=== PATIENT | male | born 1965 | race African-American/Black ===

== ENCOUNTER 2016-12-22 13:34 | Inpatient (IN) | payer OTHER ==
[2016-12-22 14:46] VITALS: BMI 25.8
--- NOTE | 2016-12-22 17:18 | HP ---
CIWA Score - CIWA Score Nausea/Vomitin-Mild Nausea/No Vomiting Muscle Tremors: 4-Moderate,w/Arms Extend Anxiety: 4-Mod. Anxious/Guarded Agitation: 4-Moderately Restless Paroxysmal Sweats: 1-Minimal Palms Moist Orientation: 0-Oriented Tacttile Disturbances: 0-None Auditory Disturbances: 0-None Visual Disturbances: 0-None Headache: 1-Very Mild CIWA-Ar Total Score: 15 Admission ROS [facility] - HPI Chief Complaint: withdrawal sx Allergies/Adverse Reactions: Allergies Allergy/AdvReac Type Severity Reaction Status Date / Time coffee (Coffea arabica) Allergy Severe Rash Verified 12/22/16 15:59 NKDA Allergy Uncoded 12/22/16 15:59 History of Present Illness: 51 years old males with long history of alcohol nicotine cocaine dependence, denies medical issue denies mental illness is admitted to detox Exam Limitations: No Limitations - Ebola screening Have you traveled outside of the country in the last 21 days: No Have you had contact with anyone from an Ebola affected area: No Have you been sick,other than usual withdrawal symptoms: No Do you have a fever: No - Review of Systems Constitutional: Changes in sleep, Weight Stable EENT: reports: No Symptoms Reported Respiratory: reports: No Symptoms reported Cardiac: reports: No Symptoms Reported GI: reports: Nausea, Poor Fluid Intake, Abdominal cramping : reports: No Symptoms Reported Musculoskeletal: reports: No Symptoms Reported Integumentary: reports: No Symptoms Reported Neuro: reports: Tremors Endocrine: reports: No Symptoms Reported Hematology: reports: No Symptoms Reported Psychiatric: reports: Judgement Intact, Mood/Affect Appropiate, Orientated x3 Other Systems: Reviewed and Negative Patient History - Patient Medical History Hx Anemia: No Hx Asthma: No Hx Chronic Obstructive Pulmonary Disease (COPD): No Hx Cancer: No Hx Cardiac Disorders: No Hx Congestive Heart Failure: No Hx Hypertension: No Hx Hypercholesterolemia: No Hx Pacemaker: No HX Cerebrovascular Accident: No Hx Seizures: No Hx Dementia: No Hx Diabetes: No Hx Gastrointestinal Disorders: No Hx Liver Disease: No Hx Genitourinary Disorders: No Hx Sexually Transmitted Disorders: No Hx Renal Disease (ESRD): No Hx Thyroid Disease: No Hx Human Immunodeficiency Virus (HIV): No Hx Hepatitis C: No Hx Depression: No Hx Suicide Attempt: No Hx Bipolar Disorder: No Hx Schizophrenia: No - Patient Surgical History Past Surgical History: No Hx Neurologic Surgery: No Hx Cataract Extraction: No Hx Cardiac Surgery: No Hx Lung Surgery: No Hx Breast Surgery: No Hx Breast Biopsy: No Hx Abdominal Surgery: No Hx Appendectomy: No Hx Cholecystectomy: No Hx Genitourinary Surgery: No Hx Orthopedic Surgery: No - PPD History Previous Implant?: Yes Documented Results: Negative w/o proof Implanted On Prior [facility] Admission?: No PPD to be Administered?: Yes - Smoking Cessation Smoking history: Current every day smoker Have you smoked in the past 12 months: Yes Aproximately how many cigarettes per day: 20 Cigars Per Day: 0 Hx Chewing Tobacco Use: No Initiated information on smoking cessation: Yes 'Breaking Loose' booklet given: 12/22/16 - Substance & Tx. History Hx Alcohol Use: Yes Hx Substance Use: Yes Substance Use Type: Alcohol, Cocaine Hx Substance Use Treatment: No ("do not know") - Substances Abused Crack Route: Smoking Frequency: 1-2 times per week Amount used: $100 Age of first use: 18 Date of Last Use: 12/21/16 Alcohol-beer Route: Oral Frequency: Daily Amount used: 3-6 pks. Age of first use: 15 Date of Last Use: 12/22/16 Family Disease History - Family Disease History Family Disease History: Other: Father (), Mother (), Brother ( no contace) Admission Physical Exam [facility] - Vital Signs Vital Signs: Vital Signs - 24 hr 12/22/16 14:43 Temperature 96.5 F L Pulse Rate 79 Respiratory 20 Rate Blood Pressure 127/78 - Physical General Appearance: Yes: Nourished, Appropriately Dressed, Mild Distress, Tremorous, Irritable, Sweating, Anxious HEENTM: Yes: Hearing grossly Normal, Normal ENT Inspection, Normocephalic, Normal Voice Respiratory: Yes: Chest Non-Tender, Lungs Clear, Normal Breath Sounds, No Respiratory Distress, No Accessory Muscle Use Neck: Yes: Supple, Trachea in good position Breast: Yes: Breasts Symetrical Cardiology: Yes: Regular Rhythm, Regular Rate, S1, S2 Abdominal: Yes: Non Tender, Soft Genitourinary: Yes: Within Normal Limits Back: Yes: Normal Inspection Musculoskeletal: Yes: full range of Motion, Gait Steady Extremities: Yes: Normal Inspection, Normal Range of Motion, Non-Tender, Tremors Neurological: Yes: Fully Oriented, Alert, Motor Strength 5/5, Normal Mood/Affect , Normal Response Integumentary: Yes: Warm Lymphatic: Yes: Within Normal Limits - Diagnostic (1) Alcohol dependence with uncomplicated withdrawal Current Visit: Yes Status: Acute (2) Cocaine dependence, uncomplicated Current Visit: Yes Status: Chronic (3) Nicotine dependence Current Visit: Yes Status: Acute Qualifiers: Nicotine product type: cigarettes Substance use status: in withdrawal Qualified Code(s): F17.213 - Nicotine dependence, cigarettes, with withdrawal Cleared for Admission [facility] - Detox or Rehab [facility] Level of Care: Medically Managed Detox Regimen/Protocol: Librium [facility] Breath Alcohol Content Breath Alcohol Content: 0 Urine Drug Screen - Results Drug Screen Negative: No Urine Drug Screen Results: YARELIS-Cocaine
[2016-12-22] MEDS ORDERED: MAGNESIUM HYDROX 2400MG/30ML ORAL SUSPENSION 30 ML CUP PO PRN (17:29)
[2016-12-22] MEDS ORDERED: MAG HYDROX/AL HYDROX/SIMETH 30 ML UNIT-DOSE CUP PO PRN (17:29)
[2016-12-22] MEDS ORDERED: IBUPROFEN 400 MG TABLET (FP) PO PRN (17:29)
[2016-12-22] MEDS ORDERED: MAGNESIUM CITRATE 300 ML BOTTLE PO PRN (17:29)
[2016-12-22] MEDS ORDERED: MENTHOL/PHENOL 1 EACH UD MM PRN (17:29)
[2016-12-22] MEDS ORDERED: guaiFENesin/D-METHORPHAN HB 10 ML UNIT-DOSE CUPS PO PRN (17:29)
[2016-12-22] MEDS ORDERED: LOPERAMIDE HCL 2 MG CAPSULE PO PRN (17:29)
[2016-12-22] MEDS ORDERED: ACETAMINOPHEN 325 MG TABLET (FP) PO PRN (17:29)
[2016-12-22] MEDS ORDERED: P-EPHED 60MG/TRIPROLIDI 2.5MG TABLET PO PRN (17:29)
[2016-12-22] MEDS ORDERED: hydrOXYzine PAMOATE 50 MG CAPSULE (FP) PO PRN (17:29)
[2016-12-22] MEDS ORDERED: diphenhydrAMINE HCL 50 MG CAPSULE PO PRN (17:29)
[2016-12-22] MEDS ORDERED: chlordiazePOXIDE HCL 25 MG CAPSULE PO PRN (17:29)
[2016-12-22] MEDS ORDERED: NICOTINE POLACRILEX 4 MG GUM BUC PRN (17:29)
[2016-12-22] MEDS: THIAMINE HCL 100 MG TABLET (FP) PO SCH (22:25)
[2016-12-22] MEDS: chlordiazePOXIDE HCL 25 MG CAPSULE PO SCH (22:25)
[2016-12-22 23:18] LABS: URINE APPEARANCE CLEAR; URINE BILIRUBIN NEGATIVE (NEGATIVE); URINE BLOOD NEGATIVE (NEGATIVE); URINE COLOR YELLOW; URINE GLUCOSE (UA) NEGATIVE (NEGATIVE); URINE KETONE 1+ (NEGATIVE); URINE LEUK ESTERASE NEGATIVE (NEGATIVE); URINE NITRITE NEGATIVE (NEGATIVE); URINE UROBILINOGEN NEGATIVE mg/dL (0.2-1.0)
[2016-12-22 23:19] LABS: URINE PROTEIN 1+ (NEGATIVE)
[2016-12-22 23:21] LABS: URINE MUCUS RARE; URINE WBC 1 /hpf (3-5)
[2016-12-23] MEDS: chlordiazePOXIDE HCL 25 MG CAPSULE PO SCH ×4 (06:24→22:30)
[2016-12-23 09:43] LABS: MCH 32.3 pg (25.7-33.7); MCHC 32.9 g/dl (32.0-35.9); MEAN CELL VOLUME 98.1 fl (80-96); MEAN PLT VOLUME 9.1 fl (7.5-11.1); PLATELET COUNT 194 K/MM3 (134-434); RDW 13.6 % (11.9-15.9); WHITE BLOOD COUNT 5.2 K/mm3 (4.0-10.0)
[2016-12-23] MEDS ORDERED: NICOTINE 21 MG/24 HOURS TOPICAL PATCH TD SCH (10:00)
[2016-12-23] MEDS ORDERED: PRENATAL VITAMINS W/ FOLIC ACID TABLET (FP) PO SCH (10:00)
[2016-12-23 10:15] LABS: ALK PHOS 64 U/L (45-117); ANION GAP 9 (8-16); BILIRUBIN,TOTAL 1.9 mg/dL (0.2-1.0); CALCIUM 9.1 mg/dL (8.5-10.1); CO2 26 mmol/L (21-32); CREATININE 1.2 mg/dL (0.7-1.3); GLUCOSE,RANDOM 103 mg/dL (74-106); SGOT/AST 35 U/L (15-37); SGPT/ALT 29 U/L (12-78); TOT PROT 7.2 g/dl (6.4-8.2)
--- NOTE | 2016-12-23 11:20 | PN ---
S CIWA - CIWA Score Nausea/Vomitin-No Nausea/No Vomiting Muscle Tremors: 4-Moderate,w/Arms Extend Anxiety: 3 Agitation: 3 Paroxysmal Sweats: 3 Orientation: 0-Oriented Tacttile Disturbances: 0-None Auditory Disturbances: 0-None Visual Disturbances: 0-None Headache: 1-Very Mild CIWA-Ar Total Score: 14 [facility] Progress Note (SOAP) Subjective: agitation irritable sweats shakes interrupted sleep Objective: 12/23/16 11:15 Vital Signs Temperature 98.1 F 12/23/16 09:36 Pulse Rate 79 12/23/16 09:36 Respiratory Rate 18 12/23/16 09:36 Blood Pressure 129/81 12/23/16 09:36 O2 Sat by Pulse Oximetry (%) Laboratory Tests 12/22/16 12/23/16 12/23/16 23:00 07:00 07:00 WBC 5.2 RBC 4.37 Hgb 14.1 Hct 42.8 MCV 98.1 H MCH 32.3 MCHC 32.9 RDW 13.6 Plt Count 194 MPV 9.1 Sodium 142 Potassium 3.8 Chloride 107 Carbon Dioxide 26 Anion Gap 9 BUN 20 H Creatinine 1.2 Creat Clearance w eGFR > 60 Random Glucose 103 Calcium 9.1 Total Bilirubin 1.9 H AST 35 ALT 29 Alkaline Phosphatase 64 Total Protein 7.2 Albumin 4.0 Urine Color Yellow Urine Appearance Clear Urine pH 5.0 Urine Protein 1+ H Urine Glucose (UA) Negative Urine Ketones 1+ H Urine Blood Negative Urine Nitrite Negative Urine Bilirubin Negative Urine Urobilinogen Negative Ur Leukocyte Esterase Negative Urine RBC None Urine WBC 1 Urine Mucus Rare awake/alert ambulating no acute distress Assessment: 12/23/16 11:16 withdrawal sx Plan: continue detox increase fluids
--- NOTE | 2016-12-23 11:33 | EKG ---
Test Reason : Blood Pressure : / mmHG Vent. Rate : 064 BPM Atrial Rate : 064 BPM P-R Int : 166 ms QRS Dur : 092 ms QT Int : 418 ms P-R-T Axes : 071 007 016 degrees QTc Int : 431 ms NORMAL SINUS RHYTHM NONSPECIFIC T WAVE ABNORMALITY ABNORMAL ECG NO PREVIOUS ECGS AVAILABLE Confirmed by RODGER ARREAGA, YURY ([id number]) on 12/23/2016 11:32:27 AM Referred By: Confirmed By:YURY SOARES MD
[2016-12-23] MEDS: THIAMINE HCL 100 MG TABLET (FP) PO SCH (22:28)
[2016-12-24] MEDS: chlordiazePOXIDE HCL 25 MG CAPSULE PO SCH (06:16)
--- NOTE | 2016-12-24 10:12 | PN ---
[facility] Progress Note Note: pt became irrate, irritable, angry storming out of his room refusing to answer any questions only states "I a out of this fucking place." Pt signed out AMA.
--- NOTE | 2016-12-24 10:14 | DS ---
[facility] Detox Discharge Summary Admission Date: 12/22/16 - History Present History: Alcohol Dependence, Cocaine Dependence - Physical Exam Results Vital Signs: Vital Signs Temperature 97.9 F 12/24/16 06:00 Pulse Rate 56 L 12/24/16 06:00 Respiratory Rate 18 12/24/16 06:00 Blood Pressure 111/74 12/24/16 06:00 O2 Sat by Pulse Oximetry (%) - Medication Discharge Medications: Ambulatory Orders NK [No Known Home Medication] 12/22/16 - Diagnosis (1) Alcohol dependence with uncomplicated withdrawal Current Visit: Yes Status: Chronic (2) Nicotine dependence Current Visit: Yes Status: Chronic Qualifiers: Nicotine product type: cigarettes Substance use status: uncomplicated Qualified Code(s): F17.210 - Nicotine dependence, cigarettes, uncomplicated (3) Cocaine dependence, uncomplicated Current Visit: Yes Status: Chronic - AMA Did Patient Leave Against Medical Advice: Yes
[2016-12-24 10:24] VITALS: BP 121/79; PULSE 70; TEMP 97.3
[2016-12-24] MEDS ORDERED: chlordiazePOXIDE 5 MG CAPSULE PO SCH (23:00)
[2016-12-25] MEDS ORDERED: chlordiazePOXIDE HCL 10 MG CAPSULE PO SCH (23:00)
== END 2016-12-24 09:55 | disposition left against medical advice (07) | DRG 770 ==
LOC: YASAS 13:34 → Y6N 17:50
PROVIDERS: ADMIT Internal Medicine Addiction Medicine; ATTEND Internal Medicine Addiction Medicine
PROC: HZ2ZZZZ Detoxification Services for Substance Abuse Treatment (ICD-10-PCS; principal; 2016-12-24)
DX: F10.230 Alcohol dependence with withdrawal, uncomplicated (principal); F14.20 Cocaine dependence, uncomplicated; F17.210 Nicotine dependence, cigarettes, uncomplicated
CPT/HCPCS: 36415; 80053; 81003; 81015; 85027; 86593; 86803; 93005; 93010

== ENCOUNTER 2017-01-27 17:10 | Inpatient (IN) | payer OTHER ==
[2017-01-27 17:37] VITALS: BMI 26.6
--- NOTE | 2017-01-27 18:14 | HP ---
Admission ROS [facility] - [facility] Chief Complaint: I WANT TO GO TO REHAB Allergies/Adverse Reactions: Allergies Allergy/AdvReac Type Severity Reaction Status Date / Time coffee (Coffea arabica) Allergy Severe Rash Verified 01/27/17 17:38 NKDA Allergy Uncoded 01/27/17 17:38 History of Present Illness: 51 YEARS OLD MALE WITH LONG HISTORY OF ALCOHOL COCAINE NICOTINE DEPENDENCE HAS RASHES ON SCALP AND NECK DENIES MENTAL ILLNESS IS ADMITTED TO REHAB Exam Limitations: No Limitations - Ebola screening Have you traveled outside of the country in the last 21 days: No Have you had contact with anyone from an Ebola affected area: No Have you been sick,other than usual withdrawal symptoms: No Do you have a fever: No - Review of Systems Constitutional: Loss of Appetite, Unintentional Wgt. Loss, Unexplained wgt Loss EENT: reports: No Symptoms Reported Respiratory: reports: No Symptoms reported Cardiac: reports: No Symptoms Reported GI: reports: No Symptoms Reported : reports: No Symptoms Reported Musculoskeletal: reports: No Symptoms Reported Integumentary: reports: Rash Neuro: reports: No Symptoms reported Endocrine: reports: No Symptoms Reported Hematology: reports: No Symptoms Reported Psychiatric: reports: No Sypmtoms Reported, Judgement Intact, Mood/Affect Appropiate, Orientated x3 Other Systems: Reviewed and Negative Patient History - Patient Medical History Hx Anemia: No Hx Asthma: No Hx Chronic Obstructive Pulmonary Disease (COPD): No Hx Cancer: No Hx Cardiac Disorders: No Hx Congestive Heart Failure: No Hx Hypertension: No Hx Hypercholesterolemia: No Hx Pacemaker: No HX Cerebrovascular Accident: No Hx Seizures: No Hx Dementia: No Hx Diabetes: No Hx Gastrointestinal Disorders: No Hx Liver Disease: No Hx Genitourinary Disorders: No Hx Sexually Transmitted Disorders: No Hx Renal Disease (ESRD): No Hx Thyroid Disease: No Hx Human Immunodeficiency Virus (HIV): No Hx Hepatitis C: No Hx Depression: No Hx Suicide Attempt: No Hx Bipolar Disorder: No Hx Schizophrenia: No - Patient Surgical History Past Surgical History: No Hx Neurologic Surgery: No Hx Cataract Extraction: No Hx Cardiac Surgery: No Hx Lung Surgery: No Hx Breast Surgery: No Hx Breast Biopsy: No Hx Abdominal Surgery: No Hx Appendectomy: No Hx Cholecystectomy: No Hx Genitourinary Surgery: No Hx Orthopedic Surgery: No - PPD History Previous Implant?: Yes Documented Results: Negative w/proof Implanted On Prior [facility] Admission?: Yes Date: 12/24/16 PPD to be Administered?: No - Smoking Cessation Smoking history: Current every day smoker Have you smoked in the past 12 months: Yes Aproximately how many cigarettes per day: 3 Cigars Per Day: 0 Hx Chewing Tobacco Use: No Initiated information on smoking cessation: Yes 'Breaking Loose' booklet given: 01/27/17 - Substance & Tx. History Hx Alcohol Use: Yes Hx Substance Use: Yes Substance Use Type: Alcohol, Cocaine Hx Substance Use Treatment: Yes (12/2016) - Substances Abused Alcohol Route: Oral Frequency: Daily Amount used: ISSACT KERI Age of first use: 16 Date of Last Use: 01/23/17 Family Disease History - Family Disease History Family Disease History: Other: Father (), Mother (), Brother ( no contace) Admission Physical Exam [facility] - Vital Signs Vital Signs: Vital Signs - 24 hr 01/27/17 17:33 Temperature 98.5 F Pulse Rate 80 Respiratory 18 Rate Blood Pressure 129/75 - Physical General Appearance: Yes: No Apparent Distress, Appropriately Dressed, Thin HEENTM: Yes: Hearing grossly Normal, Normal ENT Inspection, Normocephalic, Normal Voice Respiratory: Yes: Chest Non-Tender, Lungs Clear, Normal Breath Sounds, No Respiratory Distress, No Accessory Muscle Use Neck: Yes: Supple, Trachea in good position Breast: Yes: Breasts Symetrical Cardiology: Yes: Regular Rhythm, Regular Rate, S1, S2 Abdominal: Yes: Normal Bowel Sounds, Non Tender, Soft Genitourinary: Yes: Within Normal Limits Back: Yes: Normal Inspection Musculoskeletal: Yes: full range of Motion, Gait Steady Extremities: Yes: Normal Inspection, Normal Range of Motion, Non-Tender Neurological: Yes: Fully Oriented, Alert, Motor Strength 5/5, Normal Mood/Affect , Normal Response Integumentary: Yes: Normal Color, Warm Lymphatic: Yes: Within Normal Limits - Diagnostic (1) Alcohol dependence with uncomplicated withdrawal Current Visit: Yes Status: Acute (2) Cocaine dependence, uncomplicated Current Visit: Yes Status: Chronic (3) Nicotine dependence Current Visit: Yes Status: Acute Qualifiers: Nicotine product type: cigarettes Substance use status: in withdrawal Qualified Code(s): F17.213 - Nicotine dependence, cigarettes, with withdrawal; F17.213 - Nicotine dependence, cigarettes, with withdrawal (4) Acneiform rash Current Visit: Yes Status: Acute (5) Weight loss Current Visit: Yes Status: Acute Cleared for Admission S - Detox or Rehab [facility] Level of Care: Observation Bed Detox Regimen/Protocol: Not Applicable Claeared for Rehab Admission: Yes [facility] Breath Alcohol Content Breath Alcohol Content: 0 Urine Drug Screen - Results Drug Screen Negative: No Urine Drug Screen Results: YARELIS-Cocaine Inpatient Rehab Admission - Initial Determination Are CD services needed?: Yes Free of communicable disease: Yes Not in need of hospitalization: Yes - Rehab Admission Criteria Previous failed treatment: Yes Poor recovery environment: Yes Comorbidities: Yes Lacks judgement: No Patient is meeting Inpatient Rehab admission criteria:: Yes
--- NOTE | 2017-01-27 18:19 | HP ---
Admission ROS [facility] - [facility] Chief Complaint: I WANT TO GO TO REHAB Allergies/Adverse Reactions: Allergies Allergy/AdvReac Type Severity Reaction Status Date / Time coffee (Coffea arabica) Allergy Severe Rash Verified 01/27/17 17:38 NKDA Allergy Uncoded 01/27/17 17:38 History of Present Illness: 51 YEARS OLD MALE WITH LONG HISTORY OF ALCOHOL COCAINE NICOTINE DEPENDENCE DENIES MEDICAL ISSUE DENIES MENTAL ILLNESS IS ADMITTED TO REHAB Exam Limitations: No Limitations - Ebola screening Have you traveled outside of the country in the last 21 days: No Have you had contact with anyone from an Ebola affected area: No Have you been sick,other than usual withdrawal symptoms: No Do you have a fever: No - Review of Systems Constitutional: Loss of Appetite, Unintentional Wgt. Loss, Unexplained wgt Loss EENT: reports: No Symptoms Reported Respiratory: reports: No Symptoms reported Cardiac: reports: No Symptoms Reported GI: reports: No Symptoms Reported : reports: No Symptoms Reported Musculoskeletal: reports: No Symptoms Reported Integumentary: reports: No Symptoms Reported Neuro: reports: No Symptoms reported Endocrine: reports: No Symptoms Reported Hematology: reports: No Symptoms Reported Psychiatric: reports: Judgement Intact, Mood/Affect Appropiate, Orientated x3 Other Systems: Reviewed and Negative Patient History - Patient Medical History Hx Anemia: No Hx Asthma: No Hx Chronic Obstructive Pulmonary Disease (COPD): No Hx Cancer: No Hx Cardiac Disorders: No Hx Congestive Heart Failure: No Hx Hypertension: No Hx Hypercholesterolemia: No Hx Pacemaker: No HX Cerebrovascular Accident: No Hx Seizures: No Hx Dementia: No Hx Diabetes: No Hx Gastrointestinal Disorders: No Hx Liver Disease: No Hx Genitourinary Disorders: No Hx Sexually Transmitted Disorders: No Hx Renal Disease (ESRD): No Hx Thyroid Disease: No Hx Human Immunodeficiency Virus (HIV): No Hx Hepatitis C: No Hx Depression: No Hx Suicide Attempt: No Hx Bipolar Disorder: No Hx Schizophrenia: No - Patient Surgical History Past Surgical History: No Hx Neurologic Surgery: No Hx Cataract Extraction: No Hx Cardiac Surgery: No Hx Lung Surgery: No Hx Breast Surgery: No Hx Breast Biopsy: No Hx Abdominal Surgery: No Hx Appendectomy: No Hx Cholecystectomy: No Hx Genitourinary Surgery: No Hx Orthopedic Surgery: No - PPD History Previous Implant?: Yes Documented Results: Negative w/proof Implanted On Prior [facility] Admission?: Yes Date: 12/24/16 PPD to be Administered?: No - Smoking Cessation Smoking history: Current every day smoker Have you smoked in the past 12 months: Yes Aproximately how many cigarettes per day: 3 Cigars Per Day: 0 Hx Chewing Tobacco Use: No Initiated information on smoking cessation: Yes 'Breaking Loose' booklet given: 01/27/17 - Substance & Tx. History Hx Alcohol Use: Yes Hx Substance Use: Yes Substance Use Type: Alcohol, Cocaine Hx Substance Use Treatment: Yes (12/2016 [facility] - Substances Abused Alcohol Route: Oral Frequency: Daily Amount used: QUART KERI Age of first use: 16 Date of Last Use: 01/23/17 Family Disease History - Family Disease History Family Disease History: Other: Father (), Mother (), Brother ( no contace) Admission Physical Exam [facility] - Vital Signs Vital Signs: Vital Signs - 24 hr 01/27/17 17:33 Temperature 98.5 F Pulse Rate 80 Respiratory 18 Rate Blood Pressure 129/75 Cleared for Admission [facility] - Detox or Rehab [facility] Level of Care: Observation Bed Detox Regimen/Protocol: Not Applicable Claeared for Rehab Admission: Yes [facility] Breath Alcohol Content Breath Alcohol Content: 0 Urine Drug Screen - Results Drug Screen Negative: No Urine Drug Screen Results: [facility]-Cocaine Inpatient Rehab Admission - Initial Determination Are CD services needed?: Yes Free of communicable disease: Yes Not in need of hospitalization: Yes - Rehab Admission Criteria Previous failed treatment: Yes Poor recovery environment: Yes Comorbidities: Yes Lacks judgement: No Patient is meeting Inpatient Rehab admission criteria:: Yes
[2017-01-27] MEDS ORDERED: MAGNESIUM CITRATE 300 ML BOTTLE PO PRN (18:20)
[2017-01-27] MEDS ORDERED: MAGNESIUM HYDROX 2400MG/30ML ORAL SUSPENSION 30 ML CUP PO PRN (18:20)
[2017-01-27] MEDS ORDERED: MAG HYDROX/AL HYDROX/SIMETH 30 ML UNIT-DOSE CUP PO PRN (18:20)
[2017-01-27] MEDS ORDERED: MENTHOL/PHENOL 1 EACH UD MM PRN (18:20)
[2017-01-27] MEDS ORDERED: IBUPROFEN 400 MG TABLET (FP) PO PRN (18:20)
[2017-01-27] MEDS ORDERED: P-EPHED 60MG/TRIPROLIDI 2.5MG TABLET PO PRN (18:20)
[2017-01-27] MEDS ORDERED: guaiFENesin/D-METHORPHAN HB 10 ML UNIT-DOSE CUPS PO PRN (18:20)
[2017-01-27] MEDS ORDERED: LOPERAMIDE HCL 2 MG CAPSULE PO PRN (18:20)
[2017-01-27] MEDS ORDERED: ACETAMINOPHEN 325 MG TABLET (FP) PO PRN (18:20)
[2017-01-27] MEDS ORDERED: NICOTINE POLACRILEX 2 MG GUM BUC PRN (18:26)
[2017-01-27] MEDS: HYDROCORTISONE 1% TOPICAL CREAM 30 GM TUBE TP SCH (22:01)
[2017-01-27] MEDS: THIAMINE HCL 100 MG TABLET (FP) PO SCH (22:02)
[2017-01-27] MEDS: diphenhydrAMINE HCL 50 MG CAPSULE PO PRN (22:02)
[2017-01-27 22:21] LABS: URINE APPEARANCE CLEAR; URINE BILIRUBIN NEGATIVE (NEGATIVE); URINE BLOOD NEGATIVE (NEGATIVE); URINE COLOR LTYELLOW; URINE GLUCOSE (UA) NEGATIVE (NEGATIVE); URINE KETONE NEGATIVE (NEGATIVE); URINE NITRITE NEGATIVE (NEGATIVE); URINE PROTEIN NEGATIVE (NEGATIVE); URINE UROBILINOGEN NEGATIVE mg/dL (0.2-1.0)
[2017-01-27] MEDS: CLOTRIMAZOLE 1% CREAM 15 GM TUBE TP SCH (22:39)
[2017-01-27] MEDS ORDERED: TUBERCULIN PPD 5 TU/0.1ML VIAL ID ONE (22:56)
[2017-01-27 23:16] LABS: URINE LEUK ESTERASE Negative (NEGATIVE)
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
[2017-01-28 10:28] LABS: HIV 1 & 2 AB NEGATIVE; HIV 1 AGp24 NEGATIVE
[2017-01-28] MEDS: PRENATAL VITAMINS W/ FOLIC ACID TABLET (FP) PO SCH (10:53)
[2017-01-28] MEDS: NICOTINE 14 MG/24 HOURS TOPICAL PATCH TD SCH (10:53)
[2017-01-28] MEDS: CLOTRIMAZOLE 1% CREAM 15 GM TUBE TP SCH ×2 (10:53→21:32)
[2017-01-28] MEDS: HYDROCORTISONE 1% TOPICAL CREAM 30 GM TUBE TP SCH ×4 (10:53→21:32)
[2017-01-28] MEDS: diphenhydrAMINE HCL 50 MG CAPSULE PO PRN (21:31)
[2017-01-28] MEDS: THIAMINE HCL 100 MG TABLET (FP) PO SCH (21:31)
[2017-01-29] MEDS: CLOTRIMAZOLE 1% CREAM 15 GM TUBE TP SCH ×2 (11:38→21:30)
[2017-01-29] MEDS: PRENATAL VITAMINS W/ FOLIC ACID TABLET (FP) PO SCH (11:38)
[2017-01-29] MEDS: NICOTINE 14 MG/24 HOURS TOPICAL PATCH TD SCH (11:38)
[2017-01-29] MEDS: HYDROCORTISONE 1% TOPICAL CREAM 30 GM TUBE TP SCH ×4 (11:38→21:30)
[2017-01-29] MEDS: THIAMINE HCL 100 MG TABLET (FP) PO SCH (21:28)
[2017-01-30] MEDS: HYDROCORTISONE 1% TOPICAL CREAM 30 GM TUBE TP SCH ×4 (09:40→21:58)
[2017-01-30] MEDS: CLOTRIMAZOLE 1% CREAM 15 GM TUBE TP SCH ×2 (09:40→21:59)
[2017-01-30] MEDS: PRENATAL VITAMINS W/ FOLIC ACID TABLET (FP) PO SCH (09:40)
[2017-01-30] MEDS: NICOTINE 14 MG/24 HOURS TOPICAL PATCH TD SCH (09:40)
--- NOTE | 2017-01-30 17:36 | EKG ---
Test Reason : Blood Pressure : / mmHG Vent. Rate : 068 BPM Atrial Rate : 068 BPM P-R Int : 170 ms QRS Dur : 088 ms QT Int : 402 ms P-R-T Axes : 063 032 037 degrees QTc Int : 427 ms NORMAL SINUS RHYTHM NORMAL ECG WHEN COMPARED WITH ECG OF 22-DEC-2016 17:52, T WAVES ARE UPRIGHT IN V2-V3 Confirmed by TAMMY MENENDEZ MD ([id number]) on 01/30/2017 5:35:47 PM Referred By: Confirmed By:TAMMY MENENDEZ MD
[2017-01-30] MEDS: THIAMINE HCL 100 MG TABLET (FP) PO SCH (21:59)
[2017-01-31] MEDS: CLOTRIMAZOLE 1% CREAM 15 GM TUBE TP SCH ×2 (09:53→22:06)
[2017-01-31] MEDS: PRENATAL VITAMINS W/ FOLIC ACID TABLET (FP) PO SCH (09:53)
[2017-01-31] MEDS: NICOTINE 14 MG/24 HOURS TOPICAL PATCH TD SCH (09:54)
[2017-01-31] MEDS: HYDROCORTISONE 1% TOPICAL CREAM 30 GM TUBE TP SCH ×4 (10:28→22:05)
[2017-01-31] MEDS: THIAMINE HCL 100 MG TABLET (FP) PO SCH (22:03)
[2017-02-01 07:05] VITALS: BP 111/63; PULSE 65; TEMP 98.6
[2017-02-01] MEDS: PRENATAL VITAMINS W/ FOLIC ACID TABLET (FP) PO SCH (10:06)
[2017-02-01] MEDS: NICOTINE 14 MG/24 HOURS TOPICAL PATCH TD SCH (10:06)
[2017-02-01] MEDS: HYDROCORTISONE 1% TOPICAL CREAM 30 GM TUBE TP SCH ×3 (10:07→18:55)
[2017-02-01] MEDS: CLOTRIMAZOLE 1% CREAM 15 GM TUBE TP SCH (10:07)
[2017-02-01] MEDS ORDERED: COLLOIDAL OATMEAL 1 BAR EACH TP PRN (12:23)
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
== END 2017-02-01 10:00 | disposition left against medical advice (07) | DRG 770 ==
LOC: YASAS 17:10 → Y3W 18:03
PROVIDERS: ADMIT Psychiatry & Neurology Psychiatry; ATTEND Psychiatry & Neurology Psychiatry
PROC: HZ42ZZZ Group Counseling for Substance Abuse Treatment, Cognitive-Behavioral (ICD-10-PCS; principal; 2017-01-27)
DX: F10.20 Alcohol dependence, uncomplicated (principal); F14.20 Cocaine dependence, uncomplicated; F17.213 Nicotine dependence, cigarettes, with withdrawal; F19.24 Other psychoactive substance dependence with psychoactive substance-induced mood disorder; L70.8 Other acne; Z91.018 Allergy to other foods; Z87.898 Personal history of other specified conditions; Y04.0XXA Assault by unarmed brawl or fight, initial encounter
CPT/HCPCS: 36415; 81003; 87389; 93005; 93010

== ENCOUNTER 2018-05-24 13:56 | Inpatient (IN) | payer OTHER ==
[2018-05-24 16:02] VITALS: BMI 25.1
--- NOTE | 2018-05-24 18:08 | HP ---
"CIWA Score - Admission Criteria [facility]ASAS Guidelines: Admission for Medically Managed Detox: Requires at least one of the followin. CIWA greater than 12 2. Seizures within the past 24 hours 3. Delirium tremens within the past 24 hours 4. Hallucinations within the past 24 hours 5. Acute intervention needed for co occurring medical disorder 6. Acute intervention needed for co occurring psychiatric disorder 7. Severe withdrawal that cannot be handled at a lower level of care (continued vomiting, continued diarrhea, abnormal vital signs) requiring intravenous medication and/or fluids 8. Admission ROS S - HPI Chief Complaint: Here for rehab for cocaine and marijuana. Allergies/Adverse Reactions: Allergies Allergy/AdvReac Type Severity Reaction Status Date / Time coffee (Coffea arabica) Allergy Severe Rash Verified 05/24/18 17:51 NKDA Allergy Uncoded 05/24/18 17:51 History of Present Illness: Here for rehab. States stopped alcohol use in September 2017. States recent relapse w/ cocaine and marijuana. Alcohol use began at age 51. Cocaine use began at age 19. Marijuana use began at age 15. Nicotine use since age 15. Declines patch and gum. Denies seizures, blackouts, overdose. Reticent about answering any health questions. Patient declines sharing discharge papers r/t TB testing and current prescribed medications given post- incarceration. Denies mental health problems. Denies thoughts of hurting self or others. Search Terms: Arturo Richardson, 1965 Search Date: 05/24/2018 06:19:56 PM The Drug Utilization Report below displays all of the controlled substance prescriptions, if any, that your patient has filled in the last twelve months. The information displayed on this report is compiled from pharmacy submissions to the Department, and accurately reflects the information as submitted by the pharmacies. This report was requested by: Nishi Brown | Reference #: [id number] There are no results for the search terms that you entered. Exam Limitations: No Limitations - Ebola screening Have you traveled outside of the country in the last 21 days: No Have you had contact with anyone from an Ebola affected area: No Have you been sick,other than usual withdrawal symptoms: No Do you have a fever: No - Review of Systems Constitutional: Unintentional Wgt. Loss (States lost 10 lbs in past few month) EENT: reports: Blurred Vision, Other (Sees white spots in eyes for years - Encouraged to f/u w/ PCP) Respiratory: reports: No Symptoms reported Cardiac: reports: No Symptoms Reported GI: reports: Indigestion (hx acid reflux - resolves w/ TUMS) : reports: No Symptoms Reported Musculoskeletal: reports: Joint Pain ((L) knee pain. Denies pain at this time.) Integumentary: reports: No Symptoms Reported Neuro: reports: No Symptoms reported Endocrine: reports: No Symptoms Reported Hematology: reports: No Symptoms Reported Psychiatric: reports: Judgement Intact, Orientated x3, Agitated, Anxious, Depressed (On occassion. Denies thoughts of hurting self or others.) Patient History - Patient Medical History Hx Anemia: No Hx Asthma: No Hx Chronic Obstructive Pulmonary Disease (COPD): No Hx Cancer: No Hx Cardiac Disorders: No Hx Congestive Heart Failure: No Hx Hypertension: No Hx Hypercholesterolemia: No Hx Pacemaker: No HX Cerebrovascular Accident: No Hx Seizures: No Hx Dementia: No Hx Diabetes: No Hx Gastrointestinal Disorders: No Hx Liver Disease: No Hx Genitourinary Disorders: No Hx Sexually Transmitted Disorders: No Hx Renal Disease (ESRD): No Hx Thyroid Disease: No Hx Human Immunodeficiency Virus (HIV): No Hx Hepatitis C: No Hx Depression: No Hx Suicide Attempt: No Hx Bipolar Disorder: No Hx Schizophrenia: No - Patient Surgical History Past Surgical History: No Hx Neurologic Surgery: No Hx Cataract Extraction: No Hx Cardiac Surgery: No Hx Lung Surgery: No Hx Breast Surgery: No Hx Breast Biopsy: No Hx Abdominal Surgery: No Hx Appendectomy: No Hx Cholecystectomy: No Hx Genitourinary Surgery: No Hx Section: No Hx Orthopedic Surgery: No Anesthesia Reaction: No - PPD History Previous Implant?: Yes Documented Results: Negative w/proof Implanted On Prior R Admission?: Yes Date: 01/29/17 PPD to be Administered?: Yes - Smoking Cessation Smoking history: Current every day smoker Have you smoked in the past 12 months: Yes Aproximately how many cigarettes per day: 5 Cigars Per Day: 0 Hx Chewing Tobacco Use: No Initiated information on smoking cessation: Yes 'Breaking Loose' booklet given: 05/24/18 - Substance & Tx. History Hx Alcohol Use: Yes Hx Substance Use: Yes Substance Use Type: Alcohol, Cocaine Hx Substance Use Treatment: Yes (detox, rehab, residential) - Substances Abused Alcohol Route: Oral Frequency: No use in 30 days Amount used: 24 6 PACK Age of first use: 51 Date of Last Use: 10/22/17 Cocaine Route: Smoking Frequency: 3-6 times per week Amount used: 1 GRAM Age of first use: 19 Date of Last Use: 05/22/18 Family Disease History - Family Disease History Family Disease History: Other: Father (), Mother (), Brother ( no contace) Admission Physical Exam [facility] - Vital Signs Vital Signs: Vital Signs - 24 hr 05/24/18 15:59 Temperature 98.7 F Pulse Rate 89 Respiratory 18 Rate Blood Pressure 126/80 - Physical General Appearance: Yes: No Apparent Distress, Nourished, Appropriately Dressed , Irritable, Anxious HEENTM: Yes: EOMI, Hearing grossly Normal, Normal Voice, THUY Respiratory: Yes: Lungs Clear, Normal Breath Sounds, No Respiratory Distress Neck: Yes: No masses,lesions,Nodules, Supple Breast: Yes: Breast Exam Deferred Cardiology: Yes: Regular Rhythm, Regular Rate, S1, S2 Abdominal: Yes: Non Tender, Flat, Soft Genitourinary: Yes: Within Normal Limits Back: Yes: Normal Inspection Musculoskeletal: Yes: full range of Motion Extremities: Yes: Normal Capillary Refill, Normal Range of Motion, Non-Tender Neurological: Yes: box spring frame builder II-XII NML intact, Alert, Motor Strength 5/5 Integumentary: Yes: Normal Color, Dry, Warm Lymphatic: Yes: Within Normal Limits - Diagnostic (1) Cannabis dependence, uncomplicated Current Visit: Yes Status: Acute (2) Alcohol use disorder, moderate, in early remission Current Visit: Yes Status: Acute (3) Nicotine dependence Current Visit: Yes Status: Chronic Qualifiers: Nicotine product type: cigarettes Substance use status: in withdrawal Qualified Code(s): F17.213 - Nicotine dependence, cigarettes, with withdrawal (4) Cocaine dependence, uncomplicated Current Visit: Yes Status: Chronic Cleared for Admission [facility] - Detox or Rehab Claeared for Rehab Admission: Yes [facility] Breath Alcohol Content Breath Alcohol Content: 0 Urine Drug Screen - Results Drug Screen Negative: No Urine Drug Screen Results: THC-Marijuana, YARELIS-Cocaine Inpatient Rehab Admission - Initial Determination Are CD services needed?: Yes Free of communicable disease: Yes Not in need of hospitalization: Yes - Rehab Admission Criteria Previous failed treatment: Yes Poor recovery environment: Yes Comorbidities: No Lacks judgement: No Patient is meeting Inpatient Rehab admission criteria:: Yes"
[2018-05-24] MEDS ORDERED: LOPERAMIDE HCL 2 MG CAPSULE PO PRN (18:37)
[2018-05-24] MEDS ORDERED: MENTHOL/PHENOL 1 EACH UD MM PRN (18:37)
[2018-05-24] MEDS ORDERED: MAGNESIUM HYDROX 2400MG/30ML ORAL SUSPENSION 30 ML CUP PO PRN (18:37)
[2018-05-24] MEDS ORDERED: MAG HYDROX/AL HYDROX/SIMETH 30 ML UNIT-DOSE CUP PO PRN (18:37)
[2018-05-24] MEDS ORDERED: MAGNESIUM CITRATE 300 ML BOTTLE PO PRN (18:37)
[2018-05-24] MEDS ORDERED: P-EPHED 60MG/TRIPROLIDI 2.5MG TABLET PO PRN (18:37)
[2018-05-24] MEDS ORDERED: TUBERCULIN PPD 5 TU/0.1ML VIAL ID ONE (20:07)
[2018-05-24] MEDS: THIAMINE HCL 100 MG TABLET (FP) PO SCH (21:49)
[2018-05-25 04:36] LABS: URINE APPEARANCE CLEAR; URINE BILIRUBIN NEGATIVE (<2.0 mg/dL); URINE COLOR AMBER; URINE GLUCOSE (UA) NEGATIVE (NEGATIVE); URINE KETONE NEGATIVE (NEGATIVE); URINE LEUK ESTERASE NEGATIVE (NEGATIVE); URINE NITRITE NEGATIVE (NEGATIVE); URINE PROTEIN 1+ (NEGATIVE); URINE UROBILINOGEN 4.0 E.U/dl mg/dL (0.2-1.0)
[2018-05-25 04:45] LABS: EPI CELLS RARE /HPF (FEW); URINE BACTERIA RARE /hpf (NONE SEEN); URINE HYALINE CAST 9 /lpf; URINE MUCUS MANY
[2018-05-25] MEDS: IBUPROFEN 400 MG TABLET (FP) PO PRN (07:00)
[2018-05-25] MEDS: PRENATAL VITAMINS W/ FOLIC ACID TABLET (FP) PO SCH (11:00)
--- NOTE | 2018-05-25 14:19 | EKG ---
Test Reason : Blood Pressure : / mmHG Vent. Rate : 077 BPM Atrial Rate : 077 BPM P-R Int : 162 ms QRS Dur : 098 ms QT Int : 396 ms P-R-T Axes : 064 036 040 degrees QTc Int : 448 ms NORMAL SINUS RHYTHM NORMAL ECG WHEN COMPARED WITH ECG OF 28-JAN-2017 10:02, NO SIGNIFICANT CHANGE WAS FOUND Confirmed by YURY SOARES MD ([id number]) on 05/25/2018 2:19:02 PM Referred By: Confirmed By:YURY SOARES MD
[2018-05-25 15:43] LABS: HEMATOCRIT 36.2 % (35.4-49); HEMOGLOBIN 12.7 GM/dL (11.7-16.9); MCH 34.2 pg (25.7-33.7); MEAN CELL VOLUME 97.7 fl (80-96); MEAN PLT VOLUME 9.1 fl (7.5-11.1); PLATELET COUNT 153 K/MM3 (134-434); RBC 3.71 M/mm3 (4.00-5.60); RDW 13.1 % (11.9-15.9)
[2018-05-25 15:54] LABS: ALBUMIN 3.4 g/dl (3.4-5.0); ALK PHOS 70 U/L (45-117); ANION GAP 2 MMOL/L (8-16); BLOOD UREA NITROGEN 14 mg/dL (7-18); CALCIUM 8.1 mg/dL (8.5-10.1); CHLORIDE 108 mmol/L (98-107); CO2 34 mmol/L (21-32); GLUCOSE,RANDOM 84 mg/dL (74-106); POTASSIUM 3.7 mmol/L (3.5-5.1); SGOT/AST 55 U/L (15-37); SGPT/ALT 46 U/L (13-61); SODIUM 144 mmol/L (136-145); TOT PROT 6.1 g/dl (6.4-8.2)
[2018-05-25] MEDS: THIAMINE HCL 100 MG TABLET (FP) PO SCH (21:39)
[2018-05-26] MEDS: IBUPROFEN 400 MG TABLET (FP) PO PRN (07:06)
[2018-05-26] MEDS ORDERED: COLLOIDAL OATMEAL 1 BAR EACH TP PRN (08:45)
[2018-05-26] MEDS: PRENATAL VITAMINS W/ FOLIC ACID TABLET (FP) PO SCH (10:29)
--- NOTE | 2018-05-26 10:37 | PN ---
[facility] Progress Note Note: C/O DRY SKIN AND REQUESTING SOAP CHANGE. Laboratory Tests 05/24/18 05/25/18 05/25/18 21:51 09:05 09:05 WBC 4.0 RBC 3.71 L Hgb 12.7 Hct 36.2 D MCV 97.7 H MCH 34.2 H MCHC 35.0 RDW 13.1 Plt Count 153 D MPV 9.1 Sodium 144 Potassium 3.7 Chloride 108 H Carbon Dioxide 34 H Anion Gap 2 L BUN 14 Creatinine 1.0 Creat Clearance w eGFR > 60 Random Glucose 84 Calcium 8.1 L Total Bilirubin 1.0 AST 55 H ALT 46 Alkaline Phosphatase 70 Total Protein 6.1 L Albumin 3.4 Urine Color Mimi Urine Appearance Clear Urine pH 6.0 Ur Specific [place] 1.030 Urine Protein 1+ H Urine Glucose (UA) Negative Urine Ketones Negative Urine Blood Negative Urine Nitrite Negative Urine Bilirubin Negative Urine Urobilinogen 4.0 e.u/dl Ur Leukocyte Esterase Negative Urine WBC (Auto) <1 Urine RBC (Auto) 1 Ur Epithelial Cells Rare Urine Bacteria Rare Hyaline Casts 9 Urine Mucus Many Vital Signs - 24 hr 05/26/18 05/26/18 05/26/18 00:30 03:30 07:14 Temperature 97.1 F L Pulse Rate 74 Respiratory 18 17 18 Rate Blood Pressure 134/74 ABOVE LABS REVIEWED. RPR RESULT PENDING NAD PLAN:AVEENO SOAP DIRECTED INCREASE PO FLUIDS.
[2018-05-26 10:59] LABS: RPR REACTIVE 1:2 (NONREACTIVE)
--- NOTE | 2018-05-26 11:57 | PN ---
[facility] Progress Note Note: PT REPORTS HX OF SYPHILIS TREATMENT THIS MONTH X 3 SHOTS AT [facility] [place], [place]. PT WAS VERY RELUCTANT TO ANSWER QUESTIONS PERTAINING TO HIS PMHx ON ADMISSION PER ADMITTING PROVIDER(SEE H/P). PT CONFIRMED HE DID NOT INFORM PROVIDER ON ADMISSION ABOUT PREVIOUS SYPHILIS TX AND HAD A TITER OF 1:5. TITER DECEASING IN CURRENT LAB RESULT-SEE BELOW. PT REPORTS HE WAS AT [facility] BEFORE COMING INTO INPATIENT REHAB ON THE05/24/18 AND SUGGESTS WE CALL FOR HIS MEDICAL RECORDS FROM [facility]. CALL WAS PLACED TO [facility] AND I SPOKE TO HIS COUNSELOR DELILAH RUIZ WHO WILL FACILITATE FAXING THE SAID INFORMATION TO US HERE. INFORMED COUNSELOR FAMILIA SAMPSON AND DAYCARE WORKER DUNCAN AGUSTIN ON 5 [address]TH ON DOCUMENT PENDING FROM [facility]. Vital Signs 05/26/18 07:14 Temperature 97.1 F L Pulse Rate 74 Respiratory 18 Rate Blood Pressure 134/74 Laboratory Tests 05/24/18 05/25/18 05/25/18 21:51 09:05 09:05 WBC 4.0 RBC 3.71 L Hgb 12.7 Hct 36.2 D MCV 97.7 H MCH 34.2 H MCHC 35.0 RDW 13.1 Plt Count 153 D MPV 9.1 Sodium 144 Potassium 3.7 Chloride 108 H Carbon Dioxide 34 H Anion Gap 2 L BUN 14 Creatinine 1.0 Creat Clearance w eGFR > 60 Random Glucose 84 Calcium 8.1 L Total Bilirubin 1.0 AST 55 H ALT 46 Alkaline Phosphatase 70 Total Protein 6.1 L Albumin 3.4 Urine Color Mimi Urine Appearance Clear Urine pH 6.0 Ur Specific [place] 1.030 Urine Protein 1+ H Urine Glucose (UA) Negative Urine Ketones Negative Urine Blood Negative Urine Nitrite Negative Urine Bilirubin Negative Urine Urobilinogen 4.0 e.u/dl Ur Leukocyte Esterase Negative Urine WBC (Auto) <1 Urine RBC (Auto) 1 Ur Epithelial Cells Rare Urine Bacteria Rare Hyaline Casts 9 Urine Mucus Many RPR Titer 05/25/18 09:05 WBC RBC Hgb Hct MCV MCH MCHC RDW Plt Count MPV Sodium Potassium Chloride Carbon Dioxide Anion Gap BUN Creatinine Creat Clearance w eGFR Random Glucose Calcium Total Bilirubin AST ALT Alkaline Phosphatase Total Protein Albumin Urine Color Urine Appearance Urine pH Ur Specific [place] Urine Protein Urine Glucose (UA) Urine Ketones Urine Blood Urine Nitrite Urine Bilirubin Urine Urobilinogen Ur Leukocyte Esterase Urine WBC (Auto) Urine RBC (Auto) Ur Epithelial Cells Urine Bacteria Hyaline Casts Urine Mucus RPR Titer Reactive 1:2 H D HOWEVER [facility] PENDING HERE. EKG:NSR NORMAL ECG AWAITING GATS TO FAX COPIES OF MEDICAL HX TO [address] [place] [address].
[2018-05-26] MEDS ORDERED: MINERAL OIL/PETROLAT/WATER TOPICAL CREAM 454 GM JAR TP PRN (12:00)
[2018-05-26 14:00] LABS: TREPONEMA ANTIBODY REACTIVE (NONREACTIVE)
[2018-05-26] MEDS: THIAMINE HCL 100 MG TABLET (FP) PO SCH (22:10)
[2018-05-27] MEDS: IBUPROFEN 400 MG TABLET (FP) PO PRN ×2 (00:40→20:40)
[2018-05-27] MEDS: ACETAMINOPHEN 325 MG TABLET (FP) PO PRN (06:37)
[2018-05-27] MEDS: hydrOXYzine PAMOATE 50 MG CAPSULE (FP) PO PRN ×2 (06:38→20:41)
[2018-05-27] MEDS: PRENATAL VITAMINS W/ FOLIC ACID TABLET (FP) PO SCH (10:21)
--- NOTE | 2018-05-27 13:23 | PN ---
[facility] Progress Note Note: swelling of lower lip,no sob,no rash,pharynx not injected,no edema or swelling of uvula,able to swallow no sob Vital Signs Temperature 97.8 F 05/27/18 07:18 Pulse Rate 69 05/27/18 07:18 Respiratory Rate 18 05/27/18 07:18 Blood Pressure 116/68 05/27/18 07:18 O2 Sat by Pulse Oximetry (%) also has pain in the right shoulder s/p arthrscsopic surgery also positive ppp impression edema of lower lip s/p arthroscopic surgery of right shoulder positive ppd treatment benadryl 25 ms po q6 hrs prn motrin 400 mgs po s 6 hrs for pain close monitoring
[2018-05-27] MEDS: diphenhydrAMINE HCL 25 MG CAPSULE (FP) PO PRN ×2 (14:44→20:41)
[2018-05-27] MEDS: THIAMINE HCL 100 MG TABLET (FP) PO SCH (21:39)
[2018-05-28] MEDS: ACETAMINOPHEN 325 MG TABLET (FP) PO PRN (06:20)
[2018-05-28] MEDS: hydrOXYzine PAMOATE 50 MG CAPSULE (FP) PO PRN (06:20)
[2018-05-28] MEDS: diphenhydrAMINE HCL 25 MG CAPSULE (FP) PO PRN ×2 (06:20→21:33)
[2018-05-28] MEDS: PRENATAL VITAMINS W/ FOLIC ACID TABLET (FP) PO SCH (10:08)
[2018-05-28] MEDS: THIAMINE HCL 100 MG TABLET (FP) PO SCH (21:32)
[2018-05-29] MEDS: IBUPROFEN 400 MG TABLET (FP) PO PRN ×2 (06:24→21:48)
[2018-05-29] MEDS: diphenhydrAMINE HCL 25 MG CAPSULE (FP) PO PRN (06:24)
--- NOTE | 2018-05-29 10:23 | PN ---
[facility] Progress Note Note: COPY [facility] MEDICAL [facility] IN CHART. PT HAS A HX OF PPD+ SINCE 1992 PER RECORD. LAST CXR ON RECORD WAS 07/01/2006 WNL(PLEASE SEE ADMITTING H/P AND COPY OF MEDICAL HX IN CHART).
--- NOTE | 2018-05-29 10:25 | PN ---
[facility] Progress Note Note: NURSE CALLED TO REPORT PT C/O CHEST PAIN. RESPONDED TO CALL AND WENT TO SEE PATIENT WHO WAS PACING IN HIS ROOM AND APPEARED ANGRY AND STATING HE WANTS TO SEE THE DOCTOR BECAUSE HAS PAIN 8/10 SCALE ON RIGHT SIDE OF HIS CHEST, SHOULDER AND ARM. DENIES SOB, DIZZINESS, HEADACHE, NAUSEA OR VOMITING. HOWEVER, PT REPORTS HE HAS A HX OF RIGHT ROTATOR CUFF SURGERY 2 YRS AGO AT [place], [place] DUE TO CRACKED ROTATOR CUFF. REPORTS SLIGHT DIFFICULTY ON HAND RAISE. ALERT O X 3. OOB AMBULATING WITH NO DIFFICULTY. Vital Signs 05/29/18 05/29/18 03:30 07:46 Temperature 99.1 F Pulse Rate 77 Respiratory 16 18 Rate Blood Pressure 107/67 Vital Signs 05/29/18 05/29/18 07:46 10:00 Temperature 99.1 F 98.4 F Pulse Rate 77 79 Respiratory 18 Rate Blood Pressure 107/67 137/79 Laboratory Tests 05/24/18 05/25/18 05/25/18 21:51 09:05 09:05 WBC 4.0 RBC 3.71 L Hgb 12.7 Hct 36.2 D MCV 97.7 H MCH 34.2 H MCHC 35.0 RDW 13.1 Plt Count 153 D MPV 9.1 Sodium 144 Potassium 3.7 Chloride 108 H Carbon Dioxide 34 H Anion Gap 2 L BUN 14 Creatinine 1.0 Creat Clearance w eGFR > 60 Random Glucose 84 Calcium 8.1 L Total Bilirubin 1.0 AST 55 H ALT 46 Alkaline Phosphatase 70 Total Protein 6.1 L Albumin 3.4 Urine Color Mimi Urine Appearance Clear Urine pH 6.0 Ur Specific [place] 1.030 Urine Protein 1+ H Urine Glucose (UA) Negative Urine Ketones Negative Urine Blood Negative Urine Nitrite Negative Urine Bilirubin Negative Urine Urobilinogen 4.0 e.u/dl Ur Leukocyte Esterase Negative Urine WBC (Auto) <1 Urine RBC (Auto) 1 Ur Epithelial Cells Rare Urine Bacteria Rare Hyaline Casts 9 Urine Mucus Many RPR Titer T.pallidum Ab ([facility]) 05/25/18 09:05 WBC RBC Hgb Hct MCV MCH MCHC RDW Plt Count MPV Sodium Potassium Chloride Carbon Dioxide Anion Gap BUN Creatinine Creat Clearance w eGFR Random Glucose Calcium Total Bilirubin AST ALT Alkaline Phosphatase Total Protein Albumin Urine Color Urine Appearance Urine pH Ur Specific [place] Urine Protein Urine Glucose (UA) Urine Ketones Urine Blood Urine Nitrite Urine Bilirubin Urine Urobilinogen Ur Leukocyte Esterase Urine WBC (Auto) Urine RBC (Auto) Ur Epithelial Cells Urine Bacteria Hyaline Casts Urine Mucus RPR Titer Reactive 1:2 H D T.pallidum Ab ([facility]) Reactive PREVIOUSLY REACTIVE PER PATIENTS MEDICAL HX DOCUMENTATIONS IN CHART. PT REPORTS HX OF PREVIOUS TREATMENT. REPEAT EKG:NSR MINIMAL VOLTAGE CRITERIA FOR LVH, MAY BE NORMAL VARIANT. BORDERLINE ECG EKG ON 05/24/18 NSR NORMAL EKG A:C/P R/O CARDIAC PATHOLOGY NERVE PAIN PLAN:TRANSFER TO [facility] VIA AMBULANCE FOR FURTHER EVALUATION AND TREATMENT. PT MAY RETURN TO REHAB TO CONTINUE TREATMENT AFTER EVALUATION AND CLEARANCE. SPOKE WITH NURSE JUAN AT THE ER. ADDENDUM:ALSO SPOKE TO NURSE ALICIA TO INFORM THE ER TO DO CHEST XRAY FOR THIS PT WITH HX PPD+ SINCE REPAIRS WAS ONGOING ON THE XRAY MACHINE AT [facility].
[2018-05-29] MEDS: PRENATAL VITAMINS W/ FOLIC ACID TABLET (FP) PO SCH (10:42)
[2018-05-29] MEDS: hydrOXYzine PAMOATE 50 MG CAPSULE (FP) PO PRN (10:43)
[2018-05-29] MEDS: METHYL SALICYLATE/MENTHOL OINT 30 GM TUBE TP SCH ×2 (13:52→22:07)
--- NOTE | 2018-05-29 17:32 | EKG ---
Test Reason : Blood Pressure : / mmHG Vent. Rate : 073 BPM Atrial Rate : 073 BPM P-R Int : 158 ms QRS Dur : 094 ms QT Int : 390 ms P-R-T Axes : 060 017 037 degrees QTc Int : 429 ms NORMAL SINUS RHYTHM MINIMAL VOLTAGE CRITERIA FOR LVH, MAY BE NORMAL VARIANT BORDERLINE ECG WHEN COMPARED WITH ECG OF 24-MAY-2018 19:24, NO SIGNIFICANT CHANGE WAS FOUND Confirmed by HAILY ARREAGA, ILDA ([id number]) on 05/29/2018 5:31:43 PM Referred By: FAISAL OCAMPO Confirmed By:ILDA JOHANSEN MD
--- NOTE | 2018-05-29 19:35 | PN ---
[facility] Progress Note Note: Patient returns from [facility] ED after being sent earlier today for c/o chest pain. During ED assessment it was noted that "Patient states did not have pain to his right chest but told staff that [facility] since they were not addressing his cold sores and his red PPD site." Patient was noted to have an erythematous raised PPD and dried crusting vesicles on his lower lip. Cardiac work-up was negative. Chest x-ray was negative Plan: Patient returned to bed on . Valtrex 1 gm PO BID x 10 days. Hydrocortisone cream to PPD site.
[2018-05-29] MEDS: valACYclovir HCL 500 MG TABLET (FP) PO SCH (21:46)
[2018-05-29] MEDS: HYDROCORTISONE 1% TOPICAL CREAM 30 GM TUBE TP SCH (21:47)
[2018-05-29] MEDS: THIAMINE HCL 100 MG TABLET (FP) PO SCH (21:47)
[2018-05-30] MEDS: HYDROCORTISONE 1% TOPICAL CREAM 30 GM TUBE TP SCH ×3 (06:00→21:33)
[2018-05-30] MEDS: PRENATAL VITAMINS W/ FOLIC ACID TABLET (FP) PO SCH (10:23)
[2018-05-30] MEDS: valACYclovir HCL 500 MG TABLET (FP) PO SCH ×2 (10:24→21:31)
[2018-05-30] MEDS: IBUPROFEN 400 MG TABLET (FP) PO PRN (10:25)
[2018-05-30] MEDS: METHYL SALICYLATE/MENTHOL OINT 30 GM TUBE TP SCH ×2 (10:26→21:34)
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
[2018-05-30] MEDS: ACETAMINOPHEN 325 MG TABLET (FP) PO PRN (18:14)
[2018-05-30] MEDS: hydrOXYzine PAMOATE 50 MG CAPSULE (FP) PO PRN (18:14)
[2018-05-30] MEDS: THIAMINE HCL 100 MG TABLET (FP) PO SCH (21:31)
[2018-05-30] MEDS: NAPROXEN 500 MG TABLET (FP) PO SCH (21:32)
[2018-05-30] MEDS: GABAPENTIN 300 MG CAPSULE (FP) PO SCH (21:34)
[2018-05-31] MEDS: ACETAMINOPHEN 325 MG TABLET (FP) PO PRN (06:20)
[2018-05-31] MEDS: HYDROCORTISONE 1% TOPICAL CREAM 30 GM TUBE TP SCH ×3 (06:23→21:45)
[2018-05-31] MEDS: CYCLOBENZAPRINE HCL 10 MG TABLET (FP) PO PRN (10:08)
[2018-05-31] MEDS: NAPROXEN 500 MG TABLET (FP) PO SCH ×2 (10:08→21:43)
[2018-05-31] MEDS: valACYclovir HCL 500 MG TABLET (FP) PO SCH ×2 (10:08→21:43)
[2018-05-31] MEDS: GABAPENTIN 300 MG CAPSULE (FP) PO SCH ×2 (10:09→21:43)
[2018-05-31] MEDS: PRENATAL VITAMINS W/ FOLIC ACID TABLET (FP) PO SCH (10:09)
[2018-05-31] MEDS: hydrOXYzine PAMOATE 50 MG CAPSULE (FP) PO PRN ×2 (10:10→21:44)
[2018-05-31] MEDS: METHYL SALICYLATE/MENTHOL OINT 30 GM TUBE TP SCH ×2 (10:12→21:45)
[2018-05-31] MEDS: THIAMINE HCL 100 MG TABLET (FP) PO SCH (21:43)
[2018-05-31] MEDS: MELATONIN 5 MG TABLETS PO PRN (21:44)
[2018-06-01] MEDS: CYCLOBENZAPRINE HCL 10 MG TABLET (FP) PO PRN (06:04)
[2018-06-01] MEDS: hydrOXYzine PAMOATE 50 MG CAPSULE (FP) PO PRN ×3 (06:04→21:43)
[2018-06-01] MEDS: HYDROCORTISONE 1% TOPICAL CREAM 30 GM TUBE TP SCH ×2 (07:32→14:13)
[2018-06-01] MEDS: GABAPENTIN 300 MG CAPSULE (FP) PO SCH ×2 (10:47→21:42)
[2018-06-01] MEDS: NAPROXEN 500 MG TABLET (FP) PO SCH ×2 (10:48→21:43)
[2018-06-01] MEDS: valACYclovir HCL 500 MG TABLET (FP) PO SCH ×2 (10:48→21:42)
[2018-06-01] MEDS: METHYL SALICYLATE/MENTHOL OINT 30 GM TUBE TP SCH ×2 (10:48→21:44)
[2018-06-01] MEDS: PRENATAL VITAMINS W/ FOLIC ACID TABLET (FP) PO SCH (10:48)
[2018-06-01] MEDS: THIAMINE HCL 100 MG TABLET (FP) PO SCH (21:43)
[2018-06-01] MEDS: MELATONIN 5 MG TABLETS PO PRN (21:43)
[2018-06-02] MEDS: PRENATAL VITAMINS W/ FOLIC ACID TABLET (FP) PO SCH (10:37)
[2018-06-02] MEDS: GABAPENTIN 300 MG CAPSULE (FP) PO SCH ×2 (10:37→21:43)
[2018-06-02] MEDS: NAPROXEN 500 MG TABLET (FP) PO SCH ×2 (10:37→21:43)
[2018-06-02] MEDS: METHYL SALICYLATE/MENTHOL OINT 30 GM TUBE TP SCH ×2 (10:38→21:45)
[2018-06-02] MEDS: valACYclovir HCL 500 MG TABLET (FP) PO SCH ×2 (10:39→21:43)
[2018-06-02] MEDS: hydrOXYzine PAMOATE 50 MG CAPSULE (FP) PO PRN ×2 (10:40→21:45)
[2018-06-02] MEDS: THIAMINE HCL 100 MG TABLET (FP) PO SCH (21:43)
[2018-06-02] MEDS: MELATONIN 5 MG TABLETS PO PRN (21:44)
[2018-06-02] MEDS: CYCLOBENZAPRINE HCL 10 MG TABLET (FP) PO PRN (21:46)
[2018-06-03] MEDS: valACYclovir HCL 500 MG TABLET (FP) PO SCH ×2 (10:20→21:41)
[2018-06-03] MEDS: GABAPENTIN 300 MG CAPSULE (FP) PO SCH ×2 (10:20→21:41)
[2018-06-03] MEDS: NAPROXEN 500 MG TABLET (FP) PO SCH ×2 (10:20→21:41)
[2018-06-03] MEDS: PRENATAL VITAMINS W/ FOLIC ACID TABLET (FP) PO SCH (10:20)
[2018-06-03] MEDS: hydrOXYzine PAMOATE 50 MG CAPSULE (FP) PO PRN ×2 (10:21→21:43)
[2018-06-03] MEDS: METHYL SALICYLATE/MENTHOL OINT 30 GM TUBE TP SCH ×2 (10:22→21:42)
[2018-06-03] MEDS: THIAMINE HCL 100 MG TABLET (FP) PO SCH (21:41)
[2018-06-03] MEDS: MELATONIN 5 MG TABLETS PO PRN (21:42)
[2018-06-04] MEDS: NAPROXEN 500 MG TABLET (FP) PO SCH ×2 (10:26→21:37)
[2018-06-04] MEDS: PRENATAL VITAMINS W/ FOLIC ACID TABLET (FP) PO SCH (10:26)
[2018-06-04] MEDS: valACYclovir HCL 500 MG TABLET (FP) PO SCH ×2 (10:26→21:37)
[2018-06-04] MEDS: GABAPENTIN 300 MG CAPSULE (FP) PO SCH ×2 (10:26→21:37)
[2018-06-04] MEDS: METHYL SALICYLATE/MENTHOL OINT 30 GM TUBE TP SCH ×2 (10:27→21:39)
[2018-06-04] MEDS: hydrOXYzine PAMOATE 50 MG CAPSULE (FP) PO PRN ×2 (10:29→21:38)
[2018-06-04] MEDS: CYCLOBENZAPRINE HCL 10 MG TABLET (FP) PO PRN (10:29)
[2018-06-04] MEDS: MELATONIN 5 MG TABLETS PO PRN (21:38)
[2018-06-04] MEDS: THIAMINE HCL 100 MG TABLET (FP) PO SCH (21:38)
[2018-06-05] MEDS: GABAPENTIN 300 MG CAPSULE (FP) PO SCH ×2 (10:45→21:56)
[2018-06-05] MEDS: NAPROXEN 500 MG TABLET (FP) PO SCH ×2 (10:45→21:56)
[2018-06-05] MEDS: valACYclovir HCL 500 MG TABLET (FP) PO SCH ×2 (10:45→21:56)
[2018-06-05] MEDS: METHYL SALICYLATE/MENTHOL OINT 30 GM TUBE TP SCH ×2 (10:46→21:57)
[2018-06-05] MEDS: PRENATAL VITAMINS W/ FOLIC ACID TABLET (FP) PO SCH (10:46)
[2018-06-05] MEDS: hydrOXYzine PAMOATE 50 MG CAPSULE (FP) PO PRN ×2 (10:47→21:56)
[2018-06-05] MEDS: THIAMINE HCL 100 MG TABLET (FP) PO SCH (21:56)
[2018-06-05] MEDS: CYCLOBENZAPRINE HCL 10 MG TABLET (FP) PO PRN (21:56)
[2018-06-06] MEDS: GABAPENTIN 300 MG CAPSULE (FP) PO SCH ×2 (10:23→21:50)
[2018-06-06] MEDS: PRENATAL VITAMINS W/ FOLIC ACID TABLET (FP) PO SCH (10:23)
[2018-06-06] MEDS: NAPROXEN 500 MG TABLET (FP) PO SCH ×2 (10:23→21:50)
[2018-06-06] MEDS: valACYclovir HCL 500 MG TABLET (FP) PO SCH ×2 (10:24→21:50)
[2018-06-06] MEDS: hydrOXYzine PAMOATE 50 MG CAPSULE (FP) PO PRN (10:26)
[2018-06-06] MEDS: METHYL SALICYLATE/MENTHOL OINT 30 GM TUBE TP SCH ×2 (10:26→21:51)
[2018-06-06] MEDS: CYCLOBENZAPRINE HCL 10 MG TABLET (FP) PO PRN ×2 (10:26→21:50)
[2018-06-06] MEDS ORDERED: COLLOIDAL OATMEAL 1 BAR EACH TP PRN (10:34)
[2018-06-06] MEDS: THIAMINE HCL 100 MG TABLET (FP) PO SCH (21:50)
[2018-06-07] MEDS: NAPROXEN 500 MG TABLET (FP) PO SCH ×2 (10:15→21:44)
[2018-06-07] MEDS: valACYclovir HCL 500 MG TABLET (FP) PO SCH ×2 (10:15→21:44)
[2018-06-07] MEDS: PRENATAL VITAMINS W/ FOLIC ACID TABLET (FP) PO SCH (10:15)
[2018-06-07] MEDS: GABAPENTIN 300 MG CAPSULE (FP) PO SCH ×2 (10:15→21:44)
[2018-06-07] MEDS: METHYL SALICYLATE/MENTHOL OINT 30 GM TUBE TP SCH ×2 (10:15→21:45)
[2018-06-07] MEDS: hydrOXYzine PAMOATE 50 MG CAPSULE (FP) PO PRN ×2 (10:16→21:45)
[2018-06-07] MEDS: THIAMINE HCL 100 MG TABLET (FP) PO SCH (21:44)
[2018-06-07] MEDS: CYCLOBENZAPRINE HCL 10 MG TABLET (FP) PO PRN (21:44)
[2018-06-08] MEDS: GABAPENTIN 300 MG CAPSULE (FP) PO SCH ×2 (10:37→22:07)
[2018-06-08] MEDS: PRENATAL VITAMINS W/ FOLIC ACID TABLET (FP) PO SCH (10:37)
[2018-06-08] MEDS: NAPROXEN 500 MG TABLET (FP) PO SCH ×2 (10:37→22:07)
[2018-06-08] MEDS: valACYclovir HCL 500 MG TABLET (FP) PO SCH (10:38)
[2018-06-08] MEDS: METHYL SALICYLATE/MENTHOL OINT 30 GM TUBE TP SCH ×2 (10:38→22:07)
[2018-06-08] MEDS: THIAMINE HCL 100 MG TABLET (FP) PO SCH (22:07)
[2018-06-09] MEDS: NAPROXEN 500 MG TABLET (FP) PO SCH ×2 (10:50→22:14)
[2018-06-09] MEDS: PRENATAL VITAMINS W/ FOLIC ACID TABLET (FP) PO SCH (10:50)
[2018-06-09] MEDS: METHYL SALICYLATE/MENTHOL OINT 30 GM TUBE TP SCH ×2 (10:50→22:14)
[2018-06-09] MEDS: GABAPENTIN 300 MG CAPSULE (FP) PO SCH ×2 (10:50→22:14)
[2018-06-09] MEDS: THIAMINE HCL 100 MG TABLET (FP) PO SCH (22:15)
[2018-06-10] MEDS: GABAPENTIN 300 MG CAPSULE (FP) PO SCH ×2 (10:36→21:44)
[2018-06-10] MEDS: METHYL SALICYLATE/MENTHOL OINT 30 GM TUBE TP SCH ×2 (10:36→21:45)
[2018-06-10] MEDS: NAPROXEN 500 MG TABLET (FP) PO SCH ×2 (10:36→21:45)
[2018-06-10] MEDS: PRENATAL VITAMINS W/ FOLIC ACID TABLET (FP) PO SCH (10:36)
[2018-06-10] MEDS: THIAMINE HCL 100 MG TABLET (FP) PO SCH (21:45)
[2018-06-11] MEDS: MELATONIN 5 MG TABLETS PO PRN ×2 (00:39→21:38)
[2018-06-11] MEDS: PRENATAL VITAMINS W/ FOLIC ACID TABLET (FP) PO SCH (10:22)
[2018-06-11] MEDS: NAPROXEN 500 MG TABLET (FP) PO SCH ×2 (10:22→21:40)
[2018-06-11] MEDS: GABAPENTIN 300 MG CAPSULE (FP) PO SCH ×2 (10:22→21:38)
[2018-06-11] MEDS: METHYL SALICYLATE/MENTHOL OINT 30 GM TUBE TP SCH ×2 (10:22→21:40)
[2018-06-11] MEDS: THIAMINE HCL 100 MG TABLET (FP) PO SCH (21:39)
[2018-06-12] MEDS ORDERED: MINERAL OIL/PETROLAT/WATER TOPICAL CREAM 113 GM JAR TP SCH (10:00)
[2018-06-12] MEDS: METHYL SALICYLATE/MENTHOL OINT 30 GM TUBE TP SCH ×2 (10:07→21:53)
[2018-06-12] MEDS: NAPROXEN 500 MG TABLET (FP) PO SCH ×2 (10:07→21:52)
[2018-06-12] MEDS: GABAPENTIN 300 MG CAPSULE (FP) PO SCH ×2 (10:08→21:52)
[2018-06-12] MEDS: PRENATAL VITAMINS W/ FOLIC ACID TABLET (FP) PO SCH (10:08)
[2018-06-12] MEDS: THIAMINE HCL 100 MG TABLET (FP) PO SCH (21:52)
[2018-06-13] MEDS: PRENATAL VITAMINS W/ FOLIC ACID TABLET (FP) PO SCH (10:30)
[2018-06-13] MEDS: NAPROXEN 500 MG TABLET (FP) PO SCH ×2 (10:30→21:54)
[2018-06-13] MEDS: GABAPENTIN 300 MG CAPSULE (FP) PO SCH ×2 (10:30→21:53)
[2018-06-13] MEDS: METHYL SALICYLATE/MENTHOL OINT 30 GM TUBE TP SCH ×2 (10:33→21:52)
[2018-06-13] MEDS: THIAMINE HCL 100 MG TABLET (FP) PO SCH (21:54)
[2018-06-14] MEDS: NAPROXEN 500 MG TABLET (FP) PO SCH ×2 (11:31→22:36)
[2018-06-14] MEDS: METHYL SALICYLATE/MENTHOL OINT 30 GM TUBE TP SCH ×2 (11:31→22:36)
[2018-06-14] MEDS: GABAPENTIN 300 MG CAPSULE (FP) PO SCH ×2 (11:31→22:36)
[2018-06-14] MEDS: PRENATAL VITAMINS W/ FOLIC ACID TABLET (FP) PO SCH (11:31)
[2018-06-14] MEDS ORDERED: MINERAL OIL/PETROLAT/WATER TOPICAL CREAM 113 GM JAR TP PRN (12:11)
[2018-06-14] MEDS: THIAMINE HCL 100 MG TABLET (FP) PO SCH (22:36)
[2018-06-15] MEDS: GABAPENTIN 300 MG CAPSULE (FP) PO SCH (10:37)
[2018-06-15] MEDS: PRENATAL VITAMINS W/ FOLIC ACID TABLET (FP) PO SCH (10:37)
[2018-06-15] MEDS: METHYL SALICYLATE/MENTHOL OINT 30 GM TUBE TP SCH ×2 (10:38→21:43)
[2018-06-15] MEDS: NAPROXEN 500 MG TABLET (FP) PO SCH ×2 (10:38→21:42)
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
[2018-06-15] MEDS: THIAMINE HCL 100 MG TABLET (FP) PO SCH (21:42)
[2018-06-15] MEDS: CYCLOBENZAPRINE HCL 10 MG TABLET (FP) PO PRN (21:42)
[2018-06-15] MEDS: GABAPENTIN 400 MG CAPSULE (FP) PO SCH (21:42)
[2018-06-16] MEDS: GABAPENTIN 400 MG CAPSULE (FP) PO SCH ×3 (07:35→21:33)
[2018-06-16] MEDS: METHYL SALICYLATE/MENTHOL OINT 30 GM TUBE TP SCH ×2 (10:47→21:34)
[2018-06-16] MEDS: PRENATAL VITAMINS W/ FOLIC ACID TABLET (FP) PO SCH (10:47)
[2018-06-16] MEDS: NAPROXEN 500 MG TABLET (FP) PO SCH ×2 (10:47→21:33)
[2018-06-16] MEDS: THIAMINE HCL 100 MG TABLET (FP) PO SCH (21:33)
[2018-06-16] MEDS: CYCLOBENZAPRINE HCL 10 MG TABLET (FP) PO PRN (21:33)
[2018-06-17] MEDS: GABAPENTIN 400 MG CAPSULE (FP) PO SCH ×3 (07:13→21:39)
[2018-06-17] MEDS: PRENATAL VITAMINS W/ FOLIC ACID TABLET (FP) PO SCH (10:11)
[2018-06-17] MEDS: NAPROXEN 500 MG TABLET (FP) PO SCH ×2 (10:11→21:39)
[2018-06-17] MEDS: METHYL SALICYLATE/MENTHOL OINT 30 GM TUBE TP SCH ×2 (10:11→21:38)
[2018-06-17] MEDS: THIAMINE HCL 100 MG TABLET (FP) PO SCH (21:38)
[2018-06-18] MEDS: GABAPENTIN 400 MG CAPSULE (FP) PO SCH ×3 (06:42→21:43)
[2018-06-18] MEDS: METHYL SALICYLATE/MENTHOL OINT 30 GM TUBE TP SCH ×2 (10:25→21:43)
[2018-06-18] MEDS: NAPROXEN 500 MG TABLET (FP) PO SCH ×2 (10:26→21:43)
[2018-06-18] MEDS: PRENATAL VITAMINS W/ FOLIC ACID TABLET (FP) PO SCH (10:26)
[2018-06-18] MEDS: THIAMINE HCL 100 MG TABLET (FP) PO SCH (21:43)
[2018-06-19] MEDS: GABAPENTIN 400 MG CAPSULE (FP) PO SCH ×3 (05:58→22:00)
[2018-06-19] MEDS: METHYL SALICYLATE/MENTHOL OINT 30 GM TUBE TP SCH ×2 (10:42→22:01)
[2018-06-19] MEDS: PRENATAL VITAMINS W/ FOLIC ACID TABLET (FP) PO SCH (10:43)
[2018-06-19] MEDS: NAPROXEN 500 MG TABLET (FP) PO SCH ×2 (10:43→22:00)
[2018-06-19] MEDS: THIAMINE HCL 100 MG TABLET (FP) PO SCH (21:59)
[2018-06-19] MEDS: CYCLOBENZAPRINE HCL 10 MG TABLET (FP) PO PRN (22:00)
[2018-06-20] MEDS: GABAPENTIN 400 MG CAPSULE (FP) PO SCH ×3 (07:44→21:47)
[2018-06-20] MEDS: METHYL SALICYLATE/MENTHOL OINT 30 GM TUBE TP SCH ×2 (10:36→21:48)
[2018-06-20] MEDS: NAPROXEN 500 MG TABLET (FP) PO SCH ×2 (10:36→21:47)
[2018-06-20] MEDS: PRENATAL VITAMINS W/ FOLIC ACID TABLET (FP) PO SCH (10:36)
--- NOTE | 2018-06-20 14:55 | PN ---
S Progress Note Note: Requested by nursing staff to transmit e script for 30 days supply of Gabapentin 400 mg po TID to [facility] on behalf of patient being discharged tomorrow
[2018-06-20] MEDS: THIAMINE HCL 100 MG TABLET (FP) PO SCH (21:47)
[2018-06-20] MEDS: CYCLOBENZAPRINE HCL 10 MG TABLET (FP) PO PRN (21:47)
[2018-06-21] MEDS: GABAPENTIN 400 MG CAPSULE (FP) PO SCH (06:05)
[2018-06-21 06:56] VITALS: BP 116/73; PULSE 83; TEMP 97.6
--- NOTE | 2018-06-21 11:10 | PN ---
[facility] Progress Note Note: PT COMPLETED REHAB AND DISCHARGED TODAY. PT HAS BEEN REFERRED TO [facility] AT [facility] [place], [place]. PT ALSO WAS REMINDED TO FOLLOW UP WITH PRIMARY CARE AT [facility]. COURTESY RX FOR NAPROSYN ELECTRONICALLY SENT TO [facility]. Home Medications Medication Instructions Recorded Valacyclovir HCl [Valtrex -] 1,000 mg PO BID #10 tablet 05/29/18 Gabapentin [Neurontin -] 400 mg PO TID #90 capsule 06/20/18 Naproxen [Naprosyn -] 500 mg PO BID PRN #30 tablet 06/20/18 Vital Signs 06/21/18 06/21/18 03:30 06:55 Temperature 97.6 F Pulse Rate 83 Respiratory 18 18 Rate Blood Pressure 116/73 Laboratory Tests 05/24/18 05/25/18 05/25/18 21:51 09:05 09:05 WBC 4.0 RBC 3.71 L Hgb 12.7 Hct 36.2 D MCV 97.7 H MCH 34.2 H MCHC 35.0 RDW 13.1 Plt Count 153 D MPV 9.1 Sodium 144 Potassium 3.7 Chloride 108 H Carbon Dioxide 34 H Anion Gap 2 L BUN 14 Creatinine 1.0 Creat Clearance w eGFR > 60 Random Glucose 84 Calcium 8.1 L Total Bilirubin 1.0 AST 55 H ALT 46 Alkaline Phosphatase 70 Total Protein 6.1 L Albumin 3.4 Urine Color Mimi Urine Appearance Clear Urine pH 6.0 Ur Specific [place] 1.030 Urine Protein 1+ H Urine Glucose (UA) Negative Urine Ketones Negative Urine Blood Negative Urine Nitrite Negative Urine Bilirubin Negative Urine Urobilinogen 4.0 e.u/dl Ur Leukocyte Esterase Negative Urine WBC (Auto) <1 Urine RBC (Auto) 1 Ur Epithelial Cells Rare Urine Bacteria Rare Hyaline Casts 9 Urine Mucus Many RPR Titer T.pallidum Ab (A) 05/25/18 09:05 WBC RBC Hgb Hct MCV MCH MCHC RDW Plt Count MPV Sodium Potassium Chloride Carbon Dioxide Anion Gap BUN Creatinine Creat Clearance w eGFR Random Glucose Calcium Total Bilirubin AST ALT Alkaline Phosphatase Total Protein Albumin Urine Color Urine Appearance Urine pH Ur Specific [place] Urine Protein Urine Glucose (UA) Urine Ketones Urine Blood Urine Nitrite Urine Bilirubin Urine Urobilinogen Ur Leukocyte Esterase Urine WBC (Auto) Urine RBC (Auto) Ur Epithelial Cells Urine Bacteria Hyaline Casts Urine Mucus RPR Titer Reactive 1:2 H D T.pallidum Ab (MHA) Reactive PT REPORTS PREVIOUSLY REACTIVE AND TREATED(REPORTS TITER OF 1:5 LAST) MEDICALLY STABLE PLAN;FOLLOW UP AT [facility] ON 06/21/18 AT 1:00 P.M FOLLOW UP WITH PCP AT [facility] 1-2 WEEKS AFTER DISCHARGE.
== END 2018-06-21 07:55 | disposition home or self-care (01) | DRG 772 ==
LOC: YASAS 13:56 → Y5N 19:12
PROVIDERS: ADMIT Psychiatry & Neurology Psychiatry; ATTEND Psychiatry & Neurology Psychiatry
PROC: HZ42ZZZ Group Counseling for Substance Abuse Treatment, Cognitive-Behavioral (ICD-10-PCS; principal; 2018-05-24)
DX: F14.20 Cocaine dependence, uncomplicated (principal); F12.20 Cannabis dependence, uncomplicated; F10.21 Alcohol dependence, in remission; F17.210 Nicotine dependence, cigarettes, uncomplicated; F19.24 Other psychoactive substance dependence with psychoactive substance-induced mood disorder; B00.9 Herpesviral infection, unspecified; L85.3 Xerosis cutis; R76.11 Nonspecific reaction to tuberculin skin test without active tuberculosis; R07.9 Chest pain, unspecified; Z86.19 Personal history of other infectious and parasitic diseases
CPT/HCPCS: 36415; 80053; 81003; 81015; 85027; 86593; 86780; 93005; 93010

== ENCOUNTER 2018-05-29 12:33 | Emergency (ER) | payer OTHER | END 2018-05-29 19:05 | disposition home or self-care (01) | LOC: JER 12:33 ==

== ENCOUNTER 2020-11-10 10:10 | Inpatient (IN) | payer OTHER ==
[2020-11-10 11:10] VITALS: BMI 25.1
[2020-11-10] MEDS ORDERED: ACETAMINOPHEN 325 MG TABLET (FP) PO PRN (13:42)
[2020-11-10] MEDS ORDERED: MAGNESIUM CITRATE 300 ML BOTTLE PO PRN (13:42)
[2020-11-10] MEDS ORDERED: IBUPROFEN 400 MG TABLET (FP) PO PRN (13:42)
[2020-11-10] MEDS ORDERED: MAG HYDROX/AL HYDROX/SIMETH 30 ML UNIT-DOSE CUP PO PRN (13:42)
[2020-11-10] MEDS ORDERED: LOPERAMIDE HCL 2 MG CAPSULE PO PRN (13:42)
[2020-11-10] MEDS ORDERED: NICOTINE POLACRILEX 2 MG GUM BUC PRN (13:42)
[2020-11-10] MEDS ORDERED: MAGNESIUM HYDROX 2400MG/30ML ORAL SUSPENSION 30 ML CUP PO PRN (13:42)
[2020-11-10] MEDS ORDERED: guaiFENesin 200 MG/10 ML 10 ML UNIT-DOSE CUPS PO PRN (13:42)
[2020-11-10] MEDS ORDERED: P-EPHED 60MG/TRIPROLIDI 2.5MG TABLET PO PRN (13:42)
[2020-11-10 15:51] LABS: CALCIUM 8.5 mg/dL (8.5-10.1)
[2020-11-10 15:52] LABS: ALBUMIN 3.7 g/dl (3.4-5.0); BLOOD UREA NITROGEN 18.1 mg/dL (7-18)
[2020-11-10 15:53] LABS: HEMATOCRIT 38.6 % (35.4-49); MCH 32.7 pg (25.7-33.7); MCHC 33.6 g/dl (32.0-35.9); MEAN CELL VOLUME 97.3 fl (80-96); MEAN PLT VOLUME 8.9 fl (7.5-11.1); PLATELET COUNT 192 10^3/uL (134-434); RBC 3.96 M/mm3 (4.00-5.60); RDW 14.1 % (11.9-15.9)
[2020-11-10 15:55] LABS: CREATININE 1.1 mg/dL (0.55-1.3)
[2020-11-10 15:57] LABS: BILIRUBIN,TOTAL 0.8 mg/dL (0.2-1); TOT PROT 7.4 g/dl (6.4-8.2)
[2020-11-10] MEDS ORDERED: TUBERCULIN PPD 5 TU/0.1ML VIAL ID ONE (17:00)
[2020-11-10] MEDS: hydrOXYzine PAMOATE 25 MG CAPSULE (FP) PO SCH ×3 (17:07→23:10)
[2020-11-10] MEDS: NICOTINE 14 MG/24 HOURS TOPICAL PATCH TD SCH (17:09)
[2020-11-10] MEDS: PRAZOSIN HCL 1 MG CAPSULE PO SCH (23:10)
[2020-11-10] MEDS: MELATONIN 5 MG TABLETS PO SCH (23:10)
[2020-11-10] MEDS: THIAMINE HCL 100 MG TABLET (FP) PO SCH (23:11)
[2020-11-11] MEDS: hydrOXYzine PAMOATE 25 MG CAPSULE (FP) PO SCH (06:50)
[2020-11-11] MEDS ORDERED: hydrOXYzine PAMOATE 25 MG CAPSULE (FP) PO PRN (08:25)
[2020-11-11] MEDS: NICOTINE 14 MG/24 HOURS TOPICAL PATCH TD SCH (09:52)
[2020-11-11] MEDS: PRENATAL VITAMINS W/ FOLIC ACID TABLET (FP) PO SCH (09:52)
[2020-11-11 18:43] LABS: HIV INTERPRETATION NEGATIVE (NEGATIVE)
[2020-11-11] MEDS: THIAMINE HCL 100 MG TABLET (FP) PO SCH (21:21)
[2020-11-11] MEDS: MIRTAZAPINE 15 MG TABLET (FP) PO SCH (21:21)
[2020-11-11] MEDS: risperiDONE 1 MG TABLET PO SCH (21:21)
[2020-11-11] MEDS: MELATONIN 5 MG TABLETS PO SCH (21:21)
[2020-11-11] MEDS: PRAZOSIN HCL 1 MG CAPSULE PO SCH (21:22)
[2020-11-12] MEDS: NICOTINE 14 MG/24 HOURS TOPICAL PATCH TD SCH (10:14)
[2020-11-12] MEDS: PRENATAL VITAMINS W/ FOLIC ACID TABLET (FP) PO SCH (10:14)
[2020-11-12 10:22] LABS: URINE APPEARANCE CLEAR; URINE BILIRUBIN NEGATIVE (NEGATIVE); URINE COLOR YELLOW; URINE GLUCOSE (UA) NEGATIVE (NEGATIVE); URINE KETONE NEGATIVE (NEGATIVE); URINE LEUK ESTERASE NEGATIVE (NEGATIVE); URINE NITRITE NEGATIVE (NEGATIVE); URINE PROTEIN NEGATIVE (NEGATIVE)
[2020-11-12] MEDS: MIRTAZAPINE 15 MG TABLET (FP) PO SCH (21:51)
[2020-11-12] MEDS: PRAZOSIN HCL 1 MG CAPSULE PO SCH (21:51)
[2020-11-12] MEDS: MELATONIN 5 MG TABLETS PO SCH (21:51)
[2020-11-12] MEDS: risperiDONE 1 MG TABLET PO SCH (21:51)
[2020-11-12] MEDS: THIAMINE HCL 100 MG TABLET (FP) PO SCH (21:52)
[2020-11-13] MEDS: PRENATAL VITAMINS W/ FOLIC ACID TABLET (FP) PO SCH (10:43)
[2020-11-13] MEDS: NICOTINE 14 MG/24 HOURS TOPICAL PATCH TD SCH (10:43)
[2020-11-13] MEDS: MELATONIN 5 MG TABLETS PO SCH (22:20)
[2020-11-13] MEDS: PRAZOSIN HCL 1 MG CAPSULE PO SCH (22:20)
[2020-11-13] MEDS: risperiDONE 1 MG TABLET PO SCH (22:21)
[2020-11-13] MEDS: MIRTAZAPINE 15 MG TABLET (FP) PO SCH (22:21)
[2020-11-13] MEDS: THIAMINE HCL 100 MG TABLET (FP) PO SCH (22:21)
[2020-11-14 07:54] VITALS: BP 113/75; PULSE 67; TEMP 97.7
== END 2020-11-14 10:22 | disposition left against medical advice (07) | DRG 770 ==
LOC: YASAS 10:10 → Y3W 15:12 → Y5N 11-12 20:54
PROVIDERS: ADMIT Allergy & Immunology; ATTEND Allergy & Immunology
PROC: HZ42ZZZ Group Counseling for Substance Abuse Treatment, Cognitive-Behavioral (ICD-10-PCS; principal; 2020-11-10)
DX: F10.20 Alcohol dependence, uncomplicated (principal); F14.20 Cocaine dependence, uncomplicated; F12.20 Cannabis dependence, uncomplicated; F17.210 Nicotine dependence, cigarettes, uncomplicated; F39 Unspecified mood [affective] disorder; R76.11 Nonspecific reaction to tuberculin skin test without active tuberculosis; Z86.69 Personal history of other diseases of the nervous system and sense organs; Z86.59 Personal history of other mental and behavioral disorders; Z56.0 Unemployment, unspecified; Z59.0 Homelessness; Z91.018 Allergy to other foods
CPT/HCPCS: 36415; 80053; 81003; 85027; 86593; 86780; 87389; C9803; J2794; U0003; U0005

== ENCOUNTER 2021-07-01 12:53 | Inpatient (IN) | payer OTHER ==
[2021-07-01] MEDS ORDERED: ACETAMINOPHEN 325 MG TABLET (FP) PO PRN (15:39)
[2021-07-01] MEDS ORDERED: P-EPHED 60MG/TRIPROLIDI 2.5MG TABLET PO PRN (15:39)
[2021-07-01] MEDS ORDERED: IBUPROFEN 400 MG TABLET (FP) PO PRN (15:39)
[2021-07-01] MEDS ORDERED: MAGNESIUM HYDROX 2400MG/30ML ORAL SUSPENSION 30 ML CUP PO PRN (15:39)
[2021-07-01] MEDS ORDERED: MAG HYDROX/AL HYDROX/SIMETH 30 ML UNIT-DOSE CUP PO PRN (15:39)
[2021-07-01] MEDS ORDERED: NICOTINE 10 MG CARTRIDGE (INHALER) IH PRN (15:39)
[2021-07-01] MEDS ORDERED: guaiFENesin 200 MG/10 ML 10 ML UNIT-DOSE CUPS PO PRN (15:39)
[2021-07-01] MEDS ORDERED: MAGNESIUM CITRATE 300 ML BOTTLE PO PRN (15:39)
[2021-07-01] MEDS ORDERED: LOPERAMIDE HCL 2 MG CAPSULE PO PRN (15:39)
[2021-07-01 20:04] VITALS: BMI 22.1
[2021-07-01] MEDS ORDERED: TUBERCULIN PPD 5 TU/0.1ML VIAL ID ONE (20:45)
[2021-07-01] MEDS: THIAMINE HCL 100 MG TABLET (FP) PO SCH (20:59)
[2021-07-01] MEDS: DOCUSATE SODIUM 100 MG CAPSULE (FP) PO SCH (21:00)
[2021-07-01] MEDS: hydrOXYzine PAMOATE 25 MG CAPSULE (FP) PO SCH ×3 (21:00→21:41)
[2021-07-01] MEDS: MELATONIN 5 MG TABLETS PO SCH (21:00)
[2021-07-02] MEDS: hydrOXYzine PAMOATE 25 MG CAPSULE (FP) PO SCH ×5 (06:05→21:54)
[2021-07-02] MEDS ORDERED: COLLOIDAL OATMEAL 1 BAR EACH TP PRN (10:53)
[2021-07-02] MEDS: PRENATAL VITAMINS W/ FOLIC ACID TABLET (FP) PO SCH (11:00)
[2021-07-02] MEDS: DOCUSATE SODIUM 100 MG CAPSULE (FP) PO SCH ×2 (11:00→21:53)
[2021-07-02] MEDS: NICOTINE 7 MG/24 HOURS TOPICAL PATCH TD SCH (11:00)
[2021-07-02 12:51] LABS: CALCIUM 8.2 mg/dL (8.5-10.1)
[2021-07-02 12:52] LABS: ALBUMIN 3.1 g/dl (3.4-5.0); HEMATOCRIT 38.6 % (35.4-49); HEMOGLOBIN 13.1 GM/dL (11.7-16.9); MCH 33.3 pg (25.7-33.7); MCHC 33.8 g/dl (32.0-35.9); MEAN CELL VOLUME 98.5 fl (80-96); MEAN PLT VOLUME 8.3 fl (7.5-11.1); PLATELET COUNT 266 10^3/uL (134-434); RBC 3.92 M/mm3 (4.00-5.60); RDW 12.9 % (11.9-15.9); WHITE BLOOD COUNT 3.7 K/mm3 (4.0-10.0)
[2021-07-02 12:57] LABS: BILIRUBIN,TOTAL 1.1 mg/dL (0.2-1); TOT PROT 6.1 g/dl (6.4-8.2)
[2021-07-02] MEDS: MINERAL OIL/PETROLAT/WATER TOPICAL CREAM 113 GM JAR TP SCH (13:10)
[2021-07-02 14:15] LABS: SYPHILIS W/ RPR CONF REACTIVE (NONREACTIVE)
[2021-07-02] MEDS: MELATONIN 5 MG TABLETS PO SCH (21:53)
[2021-07-02] MEDS: risperiDONE 1 MG TABLET PO SCH (21:53)
[2021-07-02] MEDS: PRAZOSIN HCL 1 MG CAPSULE PO SCH (21:53)
[2021-07-02] MEDS: MIRTAZAPINE 15 MG TABLET (FP) PO SCH (21:53)
[2021-07-02] MEDS: THIAMINE HCL 100 MG TABLET (FP) PO SCH (23:25)
[2021-07-03] MEDS: hydrOXYzine PAMOATE 25 MG CAPSULE (FP) PO SCH ×2 (06:12→10:10)
[2021-07-03] MEDS: PRENATAL VITAMINS W/ FOLIC ACID TABLET (FP) PO SCH (10:09)
[2021-07-03] MEDS: NICOTINE 7 MG/24 HOURS TOPICAL PATCH TD SCH (10:09)
[2021-07-03] MEDS: DOCUSATE SODIUM 100 MG CAPSULE (FP) PO SCH ×2 (10:10→22:31)
[2021-07-03] MEDS: MINERAL OIL/PETROLAT/WATER TOPICAL CREAM 113 GM JAR TP SCH (10:11)
[2021-07-03] MEDS ORDERED: hydrOXYzine PAMOATE 25 MG CAPSULE (FP) PO PRN (12:49)
[2021-07-03] MEDS: PRAZOSIN HCL 1 MG CAPSULE PO SCH (22:31)
[2021-07-03] MEDS: MELATONIN 5 MG TABLETS PO SCH (22:31)
[2021-07-03] MEDS: risperiDONE 1 MG TABLET PO SCH (22:31)
[2021-07-03] MEDS: MIRTAZAPINE 15 MG TABLET (FP) PO SCH (22:31)
[2021-07-03] MEDS: THIAMINE HCL 100 MG TABLET (FP) PO SCH (22:31)
[2021-07-04] MEDS: NICOTINE 7 MG/24 HOURS TOPICAL PATCH TD SCH (11:37)
[2021-07-04] MEDS: DOCUSATE SODIUM 100 MG CAPSULE (FP) PO SCH ×2 (11:37→22:05)
[2021-07-04] MEDS: PRENATAL VITAMINS W/ FOLIC ACID TABLET (FP) PO SCH (11:37)
[2021-07-04] MEDS: MINERAL OIL/PETROLAT/WATER TOPICAL CREAM 113 GM JAR TP SCH (11:38)
[2021-07-04 14:03] LABS: URINE APPEARANCE CLEAR; URINE BILIRUBIN NEGATIVE (NEGATIVE); URINE COLOR YELLOW; URINE GLUCOSE (UA) NEGATIVE (NEGATIVE); URINE KETONE TRACE (NEGATIVE); URINE LEUK ESTERASE NEGATIVE (NEGATIVE); URINE NITRITE NEGATIVE (NEGATIVE); URINE PROTEIN NEGATIVE (NEGATIVE); URINE UROBILINOGEN 0.2 mg/dL (0.2-1.0)
[2021-07-04] MEDS: PRAZOSIN HCL 1 MG CAPSULE PO SCH (22:05)
[2021-07-04] MEDS: MELATONIN 5 MG TABLETS PO SCH (22:05)
[2021-07-04] MEDS: MIRTAZAPINE 15 MG TABLET (FP) PO SCH (22:05)
[2021-07-04] MEDS: risperiDONE 1 MG TABLET PO SCH (22:06)
[2021-07-04] MEDS: THIAMINE HCL 100 MG TABLET (FP) PO SCH (22:06)
[2021-07-05] MEDS: MINERAL OIL/PETROLAT/WATER TOPICAL CREAM 113 GM JAR TP SCH (11:05)
[2021-07-05] MEDS: PRENATAL VITAMINS W/ FOLIC ACID TABLET (FP) PO SCH (11:05)
[2021-07-05] MEDS: DOCUSATE SODIUM 100 MG CAPSULE (FP) PO SCH ×2 (11:05→21:36)
[2021-07-05] MEDS: NICOTINE 7 MG/24 HOURS TOPICAL PATCH TD SCH (11:05)
[2021-07-05] MEDS: MELATONIN 5 MG TABLETS PO SCH (21:36)
[2021-07-05] MEDS: MIRTAZAPINE 15 MG TABLET (FP) PO SCH (21:36)
[2021-07-05] MEDS: risperiDONE 1 MG TABLET PO SCH (21:36)
[2021-07-05] MEDS: THIAMINE HCL 100 MG TABLET (FP) PO SCH (21:36)
[2021-07-05] MEDS: PRAZOSIN HCL 1 MG CAPSULE PO SCH (21:37)
[2021-07-06 06:54] VITALS: BP 108/65; PULSE 88; TEMP 97.3
[2021-07-06] MEDS: DOCUSATE SODIUM 100 MG CAPSULE (FP) PO SCH ×2 (10:25→22:53)
[2021-07-06] MEDS: NICOTINE 7 MG/24 HOURS TOPICAL PATCH TD SCH (10:25)
[2021-07-06] MEDS: MINERAL OIL/PETROLAT/WATER TOPICAL CREAM 113 GM JAR TP SCH (10:25)
[2021-07-06] MEDS: PRENATAL VITAMINS W/ FOLIC ACID TABLET (FP) PO SCH (10:25)
[2021-07-06] MEDS: PRAZOSIN HCL 1 MG CAPSULE PO SCH (22:54)
[2021-07-06] MEDS: MELATONIN 5 MG TABLETS PO SCH (22:54)
[2021-07-06] MEDS: MIRTAZAPINE 15 MG TABLET (FP) PO SCH (22:55)
[2021-07-06] MEDS: THIAMINE HCL 100 MG TABLET (FP) PO SCH (22:58)
[2021-07-06] MEDS: risperiDONE 1 MG TABLET PO SCH (22:58)
[2021-07-07 14:08] LABS: SARS-CoV-2 NAA Not Detected (Not Detected)
== END 2021-07-06 20:40 | disposition left against medical advice (07) | DRG 770 ==
LOC: YASAS 12:53 → Y5N 20:02
PROVIDERS: ADMIT Allergy & Immunology; ATTEND Allergy & Immunology
PROC: HZ42ZZZ Group Counseling for Substance Abuse Treatment, Cognitive-Behavioral (ICD-10-PCS; principal; 2021-07-01)
DX: F10.20 Alcohol dependence, uncomplicated (principal); F14.20 Cocaine dependence, uncomplicated; F17.210 Nicotine dependence, cigarettes, uncomplicated; F20.9 Schizophrenia, unspecified; F19.24 Other psychoactive substance dependence with psychoactive substance-induced mood disorder; F31.9 Bipolar disorder, unspecified; F39 Unspecified mood [affective] disorder; F41.9 Anxiety disorder, unspecified; F43.10 Post-traumatic stress disorder, unspecified; Z62.810 Personal history of physical and sexual abuse in childhood; Z86.69 Personal history of other diseases of the nervous system and sense organs; Z86.19 Personal history of other infectious and parasitic diseases; Z59.00 Homelessness unspecified; Z56.0 Unemployment, unspecified; Z91.19 Patient's noncompliance with other medical treatment and regimen
CPT/HCPCS: 36415; 80053; 81003; 85027; 86593; 86780; 86803; C9803-CS; J2794; U0003; U0005